=== PATIENT | female | born 1965 ===

== ENCOUNTER 2024-09-17 12:59 | Emergency (ER) | payer OTHER, SELFPAY ==
--- NOTE | ~2024-09-17 | XR_ITS ---
EXAMINATION: XR FEMUR, RIGHT CLINICAL INFORMATION: pain COMPARISON: None available. TECHNIQUE: AP and lateral views of the right femur were obtained. FINDINGS: Minimal osteopenia. No fracture, dislocation, or suspicious bone lesion. Suprapatellar joint effusion in the knee. Hip joint appears normal. Normal soft tissues. XR/XR femur RT 2V IMPRESSION: Intact right femur. Electronically signed by: Jesus Gleason MD 09/17/2024 03:14 PM LILIYA
--- NOTE | ~2024-09-17 | XR_ITS ---
EXAMINATION: XR PELVIS CLINICAL INFORMATION: pain COMPARISON: None available. TECHNIQUE: AP view of the pelvis. FINDINGS: No fracture. Hip joint spaces are maintained. Alignment is anatomic. Femoral heads are normal in contour without AVN. Minimal superolateral acetabular spurring. Mild to moderate right and minimal left SI joint arthritis. No abnormal soft tissue calcifications. XR/XR pelvis 1-2V IMPRESSION: No acute findings of the pelvis. Electronically signed by: Jesus Gleason MD 09/17/2024 03:09 PM LILIYA
--- NOTE | ~2024-09-17 | XR_ITS ---
EXAMINATION: XR ANKLE 3 OR MORE VIEWS RIGHT, XR FOOT 3 OR MORE VIEWS RIGHT HISTORY: PAIN COMPARISON: There are no prior studies available for comparison. FINDINGS: Six views of the right foot and ankle are submitted. Osseous mineralization is normal. There is a nondisplaced fracture of the base of the 2nd metatarsal. There may be an additional fracture of the base of the 3rd metatarsal. Evaluation is limited by difficulty in patient positioning. The joint spaces are preserved. There is a plantar calcaneal spur. The soft tissues are unremarkable. XR/XR foot RT min 3V IMPRESSION: Nondisplaced fracture of the base of the 2nd metatarsal. Possible additional fracture of the base of the 3rd metatarsal. If additional imaging is desired, CT could be performed. Electronically signed by: Brenton Santos MD 09/17/2024 03:13 PM LIL[facility] MARTIN
--- NOTE | ~2024-09-17 | XR_ITS ---
EXAMINATION: XR KNEE, RIGHT CLINICAL INFORMATION: PAIN COMPARISON: None available. TECHNIQUE: Four views of the right knee. FINDINGS: Mild osteopenia. No fracture or malalignment. No bone lesion. Tricompartmental mild osteoarthritis, most significant medial and patellofemoral joints. Moderate sized suprapatellar joint effusion. Normal soft tissues. XR/XR knee RT 4V IMPRESSION: No acute bony findings right knee. Suprapatellar joint effusion. Mild tricompartmental arthritis. Electronically signed by: Jesus Gleason MD 09/17/2024 03:12 PM LILIYA
--- NOTE | ~2024-09-17 | XR_ITS ---
EXAMINATION: XR ANKLE 3 OR MORE VIEWS RIGHT, XR FOOT 3 OR MORE VIEWS RIGHT HISTORY: PAIN COMPARISON: There are no prior studies available for comparison. FINDINGS: Six views of the right foot and ankle are submitted. Osseous mineralization is normal. There is a nondisplaced fracture of the base of the 2nd metatarsal. There may be an additional fracture of the base of the 3rd metatarsal. Evaluation is limited by difficulty in patient positioning. The joint spaces are preserved. There is a plantar calcaneal spur. The soft tissues are unremarkable. XR/XR ankle RT min 3V IMPRESSION: Nondisplaced fracture of the base of the 2nd metatarsal. Possible additional fracture of the base of the 3rd metatarsal. If additional imaging is desired, CT could be performed. Electronically signed by: Brenton Santos MD 09/17/2024 03:13 PM LIL[facility] MARTIN
--- NOTE | ~2024-09-17 | XR_ITS ---
EXAMINATION: XR TIBIA AND FIBULA, RIGHT CLINICAL INFORMATION: PAIN COMPARISON: None available. TECHNIQUE: AP and lateral views of the right tibia and fibula were obtained. FINDINGS: The bones and soft tissues are normal. No fracture. No osseous lesions. XR/XR tibia fibula RT 2V IMPRESSION: Normal right tibia and fibula. Electronically signed by: Jesus Gleason MD 09/17/2024 03:13 PM [facility]
[2024-09-17 14:02] VITALS: BP 122/70; BP 136/69; PULSE 89; PULSE 97; RESP 16; TEMP 36.3; O2SAT 97; BMI 29.5
--- NOTE | 2024-09-17 14:09 | ED.GENADULT ---
HPI - General Adult General Chief complaint: Fall Stated complaint: FALL DOWN 2 STEPS,R KNEE PAIN/SWELLING PER EMS Time Seen by Provider: 09/17/24 14:02 Source: patient Mode of arrival: EMS Limitations: no limitations History of Present Illness HPI narrative: This is a 59-year-old woman who is brought in by EMS for evaluation of right leg injury. Patient states that she fell walking down 2 steps this morning. She states that she missed the last step and twisted her foot/ankle. She states that she took 1 ibuprofen early this morning at 9:00 a.m.. She states ongoing pain. She states no associated head strike or loss of consciousness. She states no neck pain. She states no extremity paresthesias. She states no associated chest pain, dyspnea, back pain, abdominal pain, headache, nausea or vomiting. She states no bilateral upper extremity injury/pain. She states the majority of her pain is in her right knee, leg and ankle/foot. She states previous injury to the right lower extremity or previous orthopedic surgery. She states taking no anticoagulated medications. Related Data Allergies Allergy/AdvReac Type Severity Reaction Status Date / Time orange Allergy Unknown Verified 09/17/24 14:05 Review of Systems Review of Systems: ROS as per [facility] Social History Social History Advance Directives: No Advance Directives Information Provided: Yes Physical Exam ED Vital Signs: Vital Signs - 24 hr 09/17/24 14:02 Temperature 97.3 F Pulse Rate 89 Respiratory Rate 16 Blood Pressure 136/69 Pulse Oximetry 97 Oxygen Delivery Method Room Air BMI result Body Mass Index 29.5 Gen: NAD, AOx3 HEENT: NCAT, EOMI, normal conjunctiva, no periorbital/postauricular ecchymosis, no bilateral hemotympanum, no otorrhea/rhinorrhea CV: RRR, no murmurs appreciated, 2+ bilateral radial and DP/PT pulses Pulm: CTAB, no increased work of breathing GI: Soft, NTND, no rebound, guarding or rigidity MSK: No midline vertebral tenderness to palpation, full active range of motion with neck flexion/extension lateral 45? rotation, no extremity deformity, bilateral upper and lower extremities parents are soft with intact overlying skin, contusion to right knee a contusion/ecchymosis of the right lateral foot, tenderness to palpation to the right forefoot, intact good range of motion with the right hip/knee/ankle flexion/extension, no laxity of the right knee with anterior/posterior and valgus/varus stress Neuro: Grossly non focal, GCS 15 , sensation intact to light touch in bilateral lower extremity dermatomes L2-S2 Skin: Warm/dry, no abrasions/lacerations, no ecchymosis to the sole of the right foot Medications Administered Discontinued Medications Generic Name Dose Route Start Last Admin Trade Name Ember PRN Reason Stop Dose Admin Ibuprofen 600 mg 09/17/24 14:07 09/17/24 14:36 Ibuprofen 600 Mg Tablet PO 09/17/24 14:08 600 mg ONCE ONE Administration Oxycodone HCl 5 mg 09/17/24 14:07 09/17/24 14:36 Oxycodone Hcl Immed Release 5 Mg Tablet PO 09/17/24 14:08 5 mg ONCE ONE Administration Medical Decision Making Medical Decision Making [facility] Narrative: Differential diagnosis includes, but is not limited to sprain, strain, fracture, dislocation. Patient is afebrile and hemodynamically stable on room air. Exam is benign and reassuring. The affected right lower extremity is neurovascularly intact. Patient was treated supportively with ibuprofen and oxycodone for analgesia. Considered CT imaging of the head, but patient is not less than 16 years of age, on blood thinners, had seizure activity after the injury, she says she was mellitus and 15 and 2 hours post injury, there are no exam findings to suspect open or depressed skull fracture, patient has had no episodes of vomiting, patient has not greater than or equal to 65 years of age, she has no retrograde amnesia to the event greater than or equal to 30 minutes and the patient did not experience a dangerous mechanism of injury. For these reasons, CT imaging of the head is not obtained. Considered CT imaging of the cervical spine, but patient is not greater than equal to 65 years of age, experiencing extremity paresthesias or had a dangerous mechanism of injury. The patient also has low risk factors in the ED with sitting position, no neck pain, no midline vertebral tenderness to palpation and she is able to actively rotate her neck 45? to the left and right. For these reasons, CT imaging of the cervical spine is not obtained. Patient is provided a walking boot and crutches. I considered knee immobilizer for the right knee, but there is no laxity to the knee joint suggest underlying ligamentous injury. On re-examination, patient is well-appearing and in no acute distress. ?There is no indication for further emergent evaluation in this otherwise well-appearing patient as above. ?Patient is provided written and verbal instructions, educational materials, orthopedic surgery referral, recommendations for outpatient follow-up, strict return precautions and teach back is performed. ?Patient states understanding and agreement with plan of care. ?Patient is discharged home in stable and improved condition. Admission/Observation Consideration of admission/observation: Escalation of care including admission/observation considered Independent Interpretation I performed an independent interpretation of an: Plain X-Ray Interpretation: I independently reviewed and interpreted the patient's x-ray of the right pelvis, femur, knee, tibia/fibula, ankle and foot, which demonstrates acute fracture of the 2nd metatarsal and otherwise demonstrates no acute fracture or dislocation. Radiology Impression Discussion of test interpretation with radiology: I have reviewed the radiologist's reading. Radiologist Impression: XR/XR pelvis 1-2V IMPRESSION: No acute findings of the pelvis. Electronically signed by: Jesus Gleason MD 09/17/2024 03:09 PM EST RP Dictated By: Jesus Gleason MD Signed By: <Electronically signed by Jesus Gleason MD in OV> 09/17/24 1509 XR/XR femur RT 2V IMPRESSION: Intact right femur. Electronically signed by: Jesus Gleason MD 09/17/2024 03:14 PM EST RP Dictated By: Jesus Gleason MD Signed By: <Electronically signed by Jesus Gleason MD in OV> 09/17/24 1514 XR/XR knee RT 4V IMPRESSION: No acute bony findings right knee. Suprapatellar joint effusion. Mild tricompartmental arthritis. Electronically signed by: Jesus Gleason MD 09/17/2024 03:12 PM EST RP Dictated By: Jesus Gleason MD Signed By: <Electronically signed by Jesus Gleason MD in OV> 09/17/24 1512 XR/XR tibia fibula RT 2V IMPRESSION: Normal right tibia and fibula. Electronically signed by: Jesus Gleason MD 09/17/2024 03:13 PM EST RP Dictated By: Jesus Gleason MD Signed By: <Electronically signed by Jesus Gleason MD in OV> 09/17/24 1513 XR/XR ankle RT min 3V IMPRESSION: Nondisplaced fracture of the base of the 2nd metatarsal. Possible additional fracture of the base of the 3rd metatarsal. If additional imaging is desired, CT could be performed. Electronically signed by: Brenton Santos MD 09/17/2024 03:13 PM EST RP Dictated By: Brenton Santos MD Signed By: <Electronically signed by Brenton Santos MD in OV> 09/17/24 1513 XR/XR foot RT min 3V IMPRESSION: Nondisplaced fracture of the base of the 2nd metatarsal. Possible additional fracture of the base of the 3rd metatarsal. If additional imaging is desired, CT could be performed. Electronically signed by: Brenton Santos MD 09/17/2024 03:13 PM EST RP Dictated By: Brenton Santos MD Signed By: <Electronically signed by Brenton Santos MD in OV> 09/17/24 1513 Discharge Plan Discharge Clinical Impression: Metatarsal fracture Patient Disposition: Home, Self-Care Instructions: Foot Fracture in Adults (ED) Additional Instructions: You were seen and evaluated in the emergency room after a fall with a right leg injury. You were found to have a fracture of the 2nd bone in your foot and a questionable fracture of the 3rd bone in your foot. You were given a walking boot and crutches to use. You may bear weight as tolerated on your injury to foot. Please call the orthopedic office to schedule a follow up appointment in 1 week. Please take 600 mg ibuprofen every 6 hours with food and water as needed for pain/swelling. You can also take 1000 mg Tylenol every 8 hour as needed for additional pain relief. Please elevate your leg above the level of your heart as much as possible throughout the day. Please ice your foot 20 minutes at a time with 20 minutes break in between. Please repeat this 3 times a day. Please feel free to repeat this cycle several times a day. Please also follow up with your primary care doctor in the next 1-2 weeks as needed. Return to the emergency room with any new concerns, symptoms or injuries. Referrals: Elvis Rivera MD [Physician] - 1 week Print Language: Kiswahili
[2024-09-17] MEDS: oxyCODONE HCl Immed Release 5 MG TABLET PO (14:36)
[2024-09-17] MEDS: Ibuprofen 600 MG TABLET PO (14:36)
--- OUTSIDE RECORDS SUMMARY | 2024-09-17 15:37 | XMS_ITS | Encounter Summary ---
Author Organization [facility] Address [address] [place] [address] Care Team Providers Care Manager Hiv Name Role Phone Minnie Turner MD Primary Care Provider [phone] Reason for Visit * Reason Comments UTI Asthma Encounter Details Date Type Department Care Team (Late st Contact Info) Description 09/13/2024 2:15 PM EST Office Visit Adult Medicine [facility] [address] [place] [address] Minnie Turner MD [address] [place] [address] Urine frequency (Primary Dx); Acute UTI; Moderate persistent asthma without complication Social History Tobacco Use Types Packs/Day Years Used Date Smoking Tobacco: Every Day Cigarettes 1 39.1 Started: 08/08/1985 Smokeless Tobacco: Never Tobacco Cessation:Ready to Q uit: Not Asked; Counseling Given: Not Answered Alcohol Use Standard Drinks/Week Comments No 0 (1 standard drink = 0.6 oz pur e alcohol) Comments Unknown Sex and Gender Information Value Date Recorded Sex Assigned at Not on file Legal Sex Female 5:07 AM EST Gender Identity Not on file Sexual Orientation Not on file documented as of this encounter Last Filed Vital Signs Vital Sign Reading Time Taken Comments Blood Pressure 116/72 09/13/2024 2:07 PM EST Pulse 98 09/13/2024 2:07 PM EST Temperature 36.3 ??C (97.4 ??F) 09/13/2024 2:07 PM ES T Respiratory Rate 16 09/13/2024 2:07 PM EST Oxygen Saturation 98% 09/13/2024 2:07 PM EST Inhaled Oxygen Concentration - - Weight 80.2 kg (176 lb 12.8 oz) 09/13/2024 2:07 PM EST Height 167.6 cm (5' 6 ) 09/13/2024 2:07 PM EST Body Mass Index 28.54 09/13/2024 2:07 PM EST documented in this encounter Ordered Prescriptions Prescription Sig Dispense Quantity Refills Last Filled Start Date End Date nitrofurantoin, macrocrystal-monoh ydrate, (MACROBID) 100 mg capsule Take 1 capsule (100 mg total) by mouth 2 (two) times a day for 5 days. 10 each 09/13/2024 loratadine (CLARITIN) 10 mg tablet Take 1 tablet (10 mg total) by mouth 1 (one) time each day. 90 each 1 09/13/2024 fluticasone (Flonase Sensimist) 27.5 mcg/actuation nasal spray Administer 1 spray into each nostril 1 (one) time each day. 10 g 3 09/13/2024 5 documented in this encounter Progress Notes * Shelley Valentine MA - 09/13/2024 2:15 PM ESTAddended by: SHELLEY VALENTINE on: 09/13/2024 02:55 PM Modules accepted: Orders * Shelley Valentine MA - 09/13/2024 2:15 PM ESTAddended by: SHELLEY VALENTINE on: 09/13/2024 03:17 PM Modules accepted: Orders * JOSE Clancy - 09/13/2024 2:15 PM ESTAddended by: QUIANA GILES on: 09/13/2024 03:28 PM Modules accepted: Orders * Minnie Turner MD - 09/13/2024 2:15 PM EST Chief Complaint: Chief Complaint Patient presents with UTI Asthma IDENTIFIER: Ankita Anderson is a 59 y.o. old female HPI She comes for evaluation stating that for some weeks she has noted her urine was dark in the morning, she is having some mild dysuria, no blood that she is seeing, she has been drinking some extra fluids and having some polyuria. She is voiding in normal amounts. She did have a telehealth visit yesterday and was complaining of some chest discomfort, stress test was reordered and she is awaiting scheduling for that. She does see behavioral health for anxiety and depression and continues on olanzapine, venlafaxine as well as Klonopin. She does have asthma and continues on the albuterol inhaler as well as Breo elliptica, Flonase and Pepcid. She has an appointment upcoming with GI. 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 Surgical History: Past Surgical History: Procedure Laterality Date NEPHRECTOMY PROCEDURE: HISTORICAL NEPHRECTOMY; COMMENT: right; donation Family History: Family History Problem Relation Name Age of Onset Diabetes Mother endstage kidney disease with kidney transplant, hypertension Throat cancer Maternal Grandfather Diabetes Father PA Breast cancer Neg Hx Colon cancer Neg Hx Ovarian cancer Neg Hx Social History: Social History Tobacco Use Smoking status: Every Day Current packs/day: 1.00 Average packs/day: 1 pack/day for 39.1 years (39.1 ttl pk-yrs) Types: Cigarettes Start date: 08/08/1985 Smokeless tobacco: Never Substance Use Topics Alcohol use: No Allergies: Fruit extracts Medications: Outpatient Medications Marked as Taking for the 09/13/24 encounter (Office Visit) with Minnie Turner MD Medication Sig Dispense Refill albuterol 2.5 mg /3 mL (0.083 %) nebulizer solution Take 1 Vial by nebulization every 4 hours as needed for Wheezing. calcium carbonate (TUMS ORAL) Take 3 Tablets by mouth 4 times daily. clonazePAM (KlonoPIN) 1 mg tablet Take 1 Tab by mouth 2 times daily as needed. famotidine (PEPCID) 20 mg tablet TAKE 1 TABLET BY MOUTH TWICE A DAY fluticasone (Flonase Sensimist) 27.5 mcg/actuation nasal spray Administer 1 spray into each nostril1 (one) time each day. 10 g 3 fluticasone furoate-vilanteroL (BREO ELLIPTA) 100-25 mcg/dose inhaler Inhale 1 Puff into the lungs daily. loratadine (CLARITIN) 10 mg tablet Take 1 tablet (10 mg total) by mouth 1 (one) time each day. 90 each 1 OLANZapine (ZyPREXA) 20 mg tablet TAKE 1 TABLET BY MOUTH EVERYDAY AT BEDTIME venlafaxine XR (EFFEXOR-XR) 75 mg 24 hr capsule Take 1 Capsule by mouth daily. Ventolin HFA 90 mcg/actuation inhaler INHALE 2 PUFFS INTO THE LUNGS EVERY 4 HOURS NEEDED FOR WHEEZING OR SHORTNESS OF BREATH 18 g 0 [DISCONTINUED] fluticasone (Flonase Sensimist) 27.5 mcg/actuation nasal spray 2 Sprays by Nasal route daily. [DISCONTINUED] loratadine (CLARITIN) 10 mg tablet Take 1 Tablet by mouth daily. Medication Discontinued/Reordered: Medications Discontinued During This Encounter Medication Reason fluticasone (Flonase Sensimist) 27.5 mcg/actuation nasal spray Reorder loratadine (CLARITIN) 10 mg tablet Reorder Vitals: Blood pressure 116/72, pulse 98, temperature 36.3 ??C (97.4 ??F), temperature source Temporal, resp. rate 16, height 1.676 m (66 ), weight 80.2 kg (176 lb 12.8 oz), SpO2 98%. Body mass index is 28.54kg/m??.Plan is deferred until next visit Physical Exam: General: patient is in no acute distress. Neck supple without adenopathy, no thyromegaly. Lungs clear with auscultation. Heart: regular S1S2 without murmur, rub or gallop. No CVA tenderness.Abdomen soft, nontender, no masses or organomegaly. Bowel sounds normal active. Extremities without cyanosis,clubbing or edema. Labs: Urinalysis shows leukocytes and blood, urine culture sent Impression: 1. Urine frequency 2. Acute UTI 3. Moderate persistent asthma without complication Assessment and Plan: She likely has a urinary tract infection, she will continue to push fluids, prescription for Macrobid is sent and urine culture is ordered. She is awaiting the previously ordered stress test. Asthma remains controlled with her inhalers, refills are given for that. Myself and my colleagues have maintained a long-term, longitudinal relationship with this patient, overseeing care of chronic conditions including asthma. This care relationship has significantly influenced my decision making and treatment plans during today's encounter. documented in this encounter Plan of Treatment Upcoming Encounters Date Type Department Care Team (Late st Contact Info) Description 10/23/2024 1:00 PM EDT Office Visit Gastroenterology - [place] [address] [facility] 175 [facility] [address] [place] [phone] Berta Fernandez PA [address] [facility] [address] [address] 03/13/2025 10:15 AM EDT Office Visit Adult Medicine [address] [phone] Yancy Goncalves PA [address] [place] [phone] 05/22/2025 9:00 AM EDT Office Visit Adult Medicine [address] [phone] Minnie Turner MD [address] [place] [phone] Scheduled Orders Name Type Priority Associated Diagnoses Orde r Schedule Culture urine Microbiology Routine Acute UTI Ordered: 09/13/2024 Culture urine Microbiology Routine Urine frequency Ordered: 09/13/2024 Culture urine Microbiology Routine Urine frequency Acute UTI Ordered: 09/13/2024 documented as of this encounter Procedures Procedure Name Priority Date/Time Associated Diagnosis Comments CULTURE URINE Routine 09/13/2024 3:29 PM EST Urine frequency POC URINE NON-AUTO W/O MICRO Routine 09/13/2024 2:37 PM EST Urine frequency documented in this encounter Results * Culture urine (09/13/2024 3:29 PM EST) Culture, Urine <10,000 CFU/mL gram negative bacilli, insignificant count, no further workup 09/14/2024 1:17 PM EST [facility] Urine Urine specimen obtained by clean catch procedure / Unknown Non-blood Collection / Unknown 09/13/2024 3:29 PM EST 09/13/2024 3:30 PM EST [facility] MICROBIOLOGY - GENERAL OR DERABLES Final Result [facility] [address] [place] [address], [place] [phone] * (ABNORMAL) POC Urine Non-Auto W/O Micro (09/13/2024 2:37 PM EST) GLUCOSE POC Negative Negative, Trace mg/dL Leukocytes UA POC 2+(A) Negative Nitrite UA POC Negative Urobilinogen UA POC 1.0 E.U./dL mg/dL Protein UA POC Negative Negative PH UA POC 5 Blood UA POC 2+(A) Negative SPECIFIC GRAVITY POC 1.010 Ketones UA POC Negative Negative Bilirubin UA POC Negative Negative Urine Urine specimen obtained by clean catch procedure / Unknown 09/13/2024 2:37 PM EST Minnie Turner MD POINT OF CARE TEST ENTER/EDIT OR DERABLES Final Result documented in this encounter Visit Diagnoses Diagnosis Urine frequency- Primary Acute UTI Urinary tract infection, site not specified Moderate persistent asthma without complication documented in this encounter Discontinued Medications Medication Sig Discontinue Reason Start Date End Da te fluticasone (Flonase Sensimist) 27.5 mcg/actuation nasal spray 2 Sprays by Nasal route daily. Reorder 12/07/2023 09/13/2024 loratadine (CLARITIN) 10 mg tablet Take 1 Tablet by mouth daily. Reorder 02/16/2023 09/13/2024 documented as of this encounter Care Teams Manager Hiv Relationship Specialty Start Date End Date Minnie Turner MD [address] [place] [address] PCP - General Internal Medicine 04/02/04 documented as of this encounter
--- OUTSIDE RECORDS SUMMARY | 2024-09-17 15:37 | XMS_ITS | Encounter Summary ---
Author Organization [facility] Address [address] [place] [address] Care Team Providers Care Amusement Ride Inspector Name Role Phone Minnie Turner MD Primary Care Provider [phone] Reason for Referral * Cardiac Stress Testing (Routine) - Authorized Specialty Diagnoses / Procedures Referred By Contac t Referred To Contact Cardiology Diagnoses Chest pain, unspecified type Procedures Exercise stress test Marcela Celis PA [address] [place] [address] Phone: tel: fax: [facility] Referral ID Status Reason Start Date Expiration Date V isits Requested Visits Authorized [id number] Authorized 09/12/2024 09/12/2025 1 1 Reason for Visit * Reason Comments Asthma Anxiety Follow-up Encounter Details Date Type Department Care Team (Late st Contact Info) Description 09/12/2024 11:00 AM EST Office Visit Adult Medicine [address] [phone] Marcela Celis PA [address] [place] [address] Chest pain, unspecified type (Primary Dx); Gastroesophageal reflux disease, unspecified whether esophagitis present; Tobacco use Social History Tobacco Use Types Packs/Day Years [...] Sign Reading Time Taken Comments Blood Pressure 114/70 09/12/2024 11:27 AM EST Pulse 89 09/12/2024 11:27 AM EST Temperature 36.5 ??C (97.7 ??F) 09/12/2024 11:[address] Respiratory Rate 14 09/12/2024 11:27 AM EST Oxygen Saturation 97% 09/12/2024 11:27 AM EST Inhaled Oxygen Concentration - - Weight 79.4 kg (175 lb) 09/12/2024 11:27 AM EST Height - - Body Mass Index 28.25 01/18/2024 1:25 PM EDT documented in this encounter Patient Instructions * Attachments The following attachments cannot be sent through Care Everywhere. * Chest Pain (Iranian) * Acid-Reducing Medicines: General Info (Iranian) * GERD (Iranian) documented in this encounter Progress Notes * Nicky Sotelo MA - 09/12/2024 11:00 AM ESTAddended by: NICKY SOTELO on: 09/12/2024 02:10 PM Modules accepted: Orders * JOSE Clancy - 09/12/2024 11:00 AM EST CHIEF COMPLAINT: Asthma, Anxiety, and Follow-up IDENTIFIER: nAkita Anderson is a 59 y.o. old female. I have obtained verbal consent from Ankita Anderson prior to the recording. I have advised Ankita Anderson that she may refuse the recording and require the recording to be turned off at any time during this encounter. History of Present Illness Patient spoke with triage nurse on 09/04/24 reporting upper abdominal pain rated 8-9/10 in intensity associated with chest heaviness and nausea and was advised to present to the emergency room. Today, patient states she decided not to go to emergency room I don't like the emergency room. She reports continued burning discomfort over the epigastrium sometimes involving the entire chest; reports noticing symptoms seem to be worse when in bed at night. She continues smoking half pack per day despite GERD/hiatal hernia for which she reports taking famotidine 40 mg nightly; last evaluated by gastroenterology on 01/18/24 without follow-up scheduled. She has not yet undergone the stress test that was ordered in December 2023. Denies chest pain at time of exam. At the end of the visit, patient reports experiencing numbness in both hands, particularly during activities such as writing/typing. We discussed she may trial nightly wrist splinting, but would needto schedule dedicated appointment for this concern. 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 Past Surgical History: Procedure Laterality Date NEPHRECTOMY PROCEDURE: HISTORICAL NEPHRECTOMY; COMMENT: right; donation SOCIAL HISTORY: Social History Tobacco Use Smoking status: Every Day Current packs/day: 1.00 Average packs/day: 1 pack/day for 39.1 years (39.1 ttl pk-yrs) Types: Cigarettes Start date: 08/08/1985 Smokeless tobacco: Never Substance Use Topics Alcohol use: No FAMILY HISTORY: Family History Problem Relation Name Age of Onset Diabetes Mother endstage kidney disease with kidney transplant, hypertension Throat cancer Maternal Grandfather Diabetes Father [place] Breast cancer Neg Hx Colon cancer Neg Hx Ovarian cancer Neg Hx Family Status Relation Name Status Mother (Not Specified) MGF Father (Not Specified) Neg Hx (Not Specified) No partnership data on file MEDICATIONS DISCONTINUED/REORDERED: There are no discontinued medications. ACTIVE MEDICATIONS: Outpatient Medications Marked as Taking for the 09/12/24 encounter (Office Visit) with JOSE Clancy Medication Sig Dispense Refill albuterol 2.5 mg [...] spray 2 Sprays by Nasal route daily. fluticasone furoate-vilanteroL (BREO ELLIPTA) 100-25 mcg/dose inhaler Inhale 1 Puff into the lungs daily. loratadine (CLARITIN) 10 mg tablet Take 1 Tablet by mouth daily. mupirocin (BACTROBAN) 2 % ointment APPLY THIN FILM TO AFFECTED AREAS ON CORNERS OF MOUTH 2-3 TIMES DAILY FOR 7 DAYS. 22 g 0 OLANZapine (ZyPREXA) 20 mg tablet TAKE 1 TABLET BY MOUTH EVERYDAY AT BEDTIME venlafaxine XR (EFFEXOR-XR) 75 mg 24 hr capsule Take 1 Capsule by mouth daily. Ventolin HFA 90 mcg/actuation inhaler INHALE 2 PUFFS INTO THE LUNGS EVERY 4 HOURS NEEDED FOR WHEEZING OR SHORTNESS OF BREATH 18 g 0 ALLERGIES: Allergies Allergen Reactions Fruit Extracts Hives ORANGES PHYSICAL EXAM: Visit Vitals BP 114/70 Pulse 89 Temp 36.5 ??C (97.7 ??F) (Temporal) Resp 14 Wt 79.4 kg (175 lb) SpO2 97% BMI 28.25 kg/m?? Smoking Status Every Day BSA 1.89 m?? Wt Readings from Last 5 Encounters: 09/12/24 79.4 kg (175 lb) 01/18/24 74.4 kg (164 lb) 12/07/23 75.8 kg (167 lb) 07/13/23 78.5 kg (173 lb) 03/04/23 79.2 kg (174 lb 9.6 oz) BMI plan is deferred until next visit Physical Exam APPEARANCE: Alert, overweight, and in no acute distress HEART: RRR with normal S1 and S2, no murmurs, no gallops LUNG: Bilateral lung kidd clear to auscultation throughout EXTREMITIES: Moving bilateral upper/lower extremities independently; no obvious upper/lower extremity deformity; bilateral upper/lower extremities warm and well perfused without edema EKG: Normal sinus rhythm, rate 78 bpm. No evidence of ischemia or arrhythmia. Similar when comparedto tracing dated 12/08/23. LABS: Orders Placed This Encounter Procedures Exercise stress test IMAGING: Ordered cardiovascular stress testing IMPRESSION: 1. Chest pain, unspecified type 2. Gastroesophageal reflux disease, unspecified whether esophagitis present 3. Tobacco use Assessment & Plan Chest discomfort - Reportedly asymptomatic at time of exam, EKG without ischemia - We discussed complete workup for chest pain cannot be completed on outpatient basis and she is encouraged to return to the ER immediately for any return of chest pain/pressure - Stress test is reordered Hiatal hernia/GERD: - Strongly encouraged low acid diet and tobacco cessation - We discussed pathophysiology of hiatal hernia relative to symptoms - Continue famotidine as prescribed - Consult marketing operations manager for medication timing Possible carpal tunnel syndrome - Not fully evaluated today due to scheduling constraints, advised to schedule dedicated appointment for further evaluation - Use wrist splints at night to prevent wrist bending and alleviate symptoms Medication and lab orders: Orders Placed This Encounter Procedures Exercise stress test Other orders: STRESS TEST ONLY EXERCISE JOSE Clancy on 09/12/2024 at 1:48 PM EST G2211 is applicable to this visit as the primary care provider (PCP) office dealing with list the conditions noted/billed above are complex requiring extensive management/work up associated with longitudinal care of this patient. This patient???s serious/complex conditions may also require several consultants needing management/coordination through PCP office. This note was dictated using voice recognition software. Please pardon any grammatical or syntax errors. * Nicky Sotelo MA - 09/12/2024 11:00 AM EST Electrocardiogram performed and reviewed by Nicky Celis PA-C. documented in this encounter Plan of Treatment Upcoming Encounters Date Type Department Care Team (Late st Contact Info) Description 10/23/2024 1:00 PM EDT Office Visit Gastroenterology - [place] [address] [place] [address] Berta Fernandez PA [address] [facility] [address] [facility] [address] [place] [address] 03/13/2025 10:15 AM EDT Office Visit Adult Medicine [address] [phone] Yancy Goncalves PA [address] [place] [phone] 05/22/2025 9:00 AM EDT Office Visit Adult [address] [phone] Minnie Turner MD [address] [place] [address] Scheduled Orders Name Type Priority Associated Diagnoses Orde r Schedule Exercise stress test Cardiac Nuclear Medicine Routine Chest pain, unspecified type 1 Occurrences starting 09/12/2024 until 09/12/2025 documented as of this encounter Procedures Procedure Name Priority Date/Time Associated Diagnosis Comments ECG 12-LEAD Routine 09/12/2024 2:08 PM EST Chest pain, unspecified type documented in this encounter Results * ECG 12 lead (09/12/2024 2:08 PM EST) 09/12/2024 2:08 PM EST Marcela GARCIA ECG ORDERABLES Final Result documented in this encounter Visit Diagnoses Diagnosis Chest pain, unspecified type- Primary Gastroesophageal reflux disease, unspecified whether esophagitis present Tobacco use documented in this encounter Care Teams Amusement Ride Inspector Relationship Specialty Start Date End Date Minnie Turner MD [address] [place] [address] PCP - General Internal Medicine 04/02/04 documented as of this encounter
--- OUTSIDE RECORDS SUMMARY | 2024-09-17 15:37 | XMS_ITS | Encounter Summary ---
Author Organization [facility] Address [address] [place] [address] Care Team Providers Care Scale Tank Operator Name Role Phone Minnie Turner MD Primary Care Provider [phone] Reason for Visit * Reason Onset Date Comments Hernia 09/04/2024 Encounter Details Date Type Department Care Team (Late st Contact Info) Description 09/04/2024 Nurse Triage Adult Medicine [facility] [address] [place] [address] Minnie Turner MD [address], [place] Hernia Social History Tobacco Use Types Packs/Day Years Used Date Smoking Tobacco: Every Day Cigarettes 1 39.1 Started: 08/08/1985 Smokeless Tobacco: Never Alcohol Use Standard Drinks/Week Comments No 0 (1 standard drink = 0.6 oz pur e alcohol) Comments Unknown Sex and Gender Information Value Date Recorded Sex Assigned at Not on file Legal Sex Female 5:07 AM EST Gender Identity Not on file Sexual Orientation Not on file documented as of this encounter Progress Notes * Ruchi Acevedo RN - 09/04/2024 11:19 AM EST Pt. States she has been having issues with abd. Pain on and off for years , she has had procedures and was told she has hiatal hernia and reflux disease. Pt. States over the last two days this pain has been constant . It is located upper abd. Radiating to left side. The pain is 8-9/10 she denies sob or weakness. She is tried and when asked sts she does have chest heaviness and intermittent nausea. She denies black tarry stools but notes her urine has been dark . (She has one kidney) I advised her if having chest pressure , upper abd. Pain radiating towards the left side and nausea should callfor ambulance . Pt. Does not feel she needs an ambulance . I reiterated the importance due some of her symptoms could be cardiac related, Pt. Is not willing to go to [facility] she [facility] go to [facility] and [facility] take her documented in this encounter Plan of Treatment Upcoming Encounters Date Type Department Care Team (Late st Contact Info) Description 10/23/2024 1:00 PM EDT Office Visit Gastroenterology - [place] [address] [facility] [address] [facility] [address] [place] [address] Berta Fernandez PA [address] [facility] [address] [place] [address] 03/13/2025 10:15 AM EDT Office Visit Adult Medicine [address] [phone] Yancy Goncalves PA [address] [place] [phone] 05/22/2025 9:00 AM EDT Office Visit Adult Medicine [address] [phone] Minnie Turner MD [address] [place] [address] documented as of this encounter Visit Diagnoses Not on filedocumented in this encounter Care Teams Scale Tank Operator Relationship Specialty Start Date End Date Minnie Turner MD [address] [place] [address] PCP - General Internal Medicine 04/02/04 documented as of this encounter
--- OUTSIDE RECORDS SUMMARY | 2024-09-17 15:37 | XMS_ITS | Clinical Summary ---
Author Organization [address] [facility] Address [address] [place] [address] Phone Care Team Providers Care Hr Consultant Name Role Phone Minnie Turner MD Primary Care Provider [phone] Allergies Active Allergy Reactions Criticality Noted Date Comments Fruit Extracts Hives 09/16/2011 ORANGES Medications calcium carbonate (TUMS ORAL) Take 3 Tablets by mouth 4 times daily. Active albuterol 2.5 mg /3 mL (0.083 %) nebulizer solution Take 1 Vial by nebulization every 4 hours as needed for Wheezing. 07/14/20 22 Active clonazePAM (KlonoPIN) 1 mg tablet Take 1 Tab by mouth 2 times daily as needed. 02/21/20 20 Active fluticasone furoate-vilan teroL (BREO ELLIPTA) 100-25 mcg/dose inhaler Inhale 1 Puff into the lungs daily. 12/07/19 24 Active OLANZapine (ZyPREXA) 20 mg tablet TAKE 1 TABLET BY MOUTH EVERYDAY AT BEDTIME 07/07/20 22 Active venlafaxine XR (EFFEXOR-XR) 75 mg 24 hr capsule Take 1 Capsule by mouth daily. 12/28/19 23 Active Ventolin HFA 90 mcg/actuation inhaler INHALE 2 PUFFS INTO THE LUNGS EVERY 4 HOURS NEEDED FOR WHEEZING OR SHORTNESS OF BREATH 18 g 09/04/19 25 Active mupirocin (BACTROBAN) 2 % ointment APPLY THIN FILM TO AFFECTED AREAS ON CORNERS OF MOUTH 2-3 TIMES DAILY FOR 7 DAYS. 22 g 08/03/20 24 Active fluticasone (Flonase Sensimist) 27.5 mcg/actuation nasal spray Administer 1 spray into each nostril 1 (one) time each day. 10 g 3 09/13/19 25 025 Active loratadine (CLARITIN) 10 mg tablet Take 1 tablet (10 mg total) by mouth 1 (one) time each day. 90 each 1 09/13/19 25 Active nitrofurantoi n, macrocrystal- monohydrate, (MACROBID) 100 mg capsule Take 1 capsule (100 mg total) by mouth 2 (two) times a day for 5 days. 10 each 09/13/19 25 025 Active famotidine (PEPCID) 20 mg tablet TAKE 1 TABLET BY MOUTH TWICE A DAY 180 tablet 3 09/14/19 25 Active albuterol HFA (ProAir HFA) 90 mcg/actuation inhaler Inhale 2 Puffs into the lungs every 6 hours as needed for Wheezing or Shortness of Breath for up to 90 days. This is a Rescue Medication; not exceed 12 inhalations/24 hrs. 11/05/19 21 025 Discontinued famotidine (PEPCID) 20 mg tablet TAKE 1 TABLET BY MOUTH TWICE A DAY 02/15/20 24 025 Discontinued fluticasone (Flonase Sensimist) 27.5 mcg/actuation nasal spray 2 Sprays by Nasal route daily. 12/07/19 24 025 Discontinued(R eorder) loratadine (CLARITIN) 10 mg tablet Take 1 Tablet by mouth daily. 02/17/20 23 025 Discontinued(R eorder) Active Problems Problem Noted Date Diagnosed Date Gastroesophageal reflux disease without esophagi tis 03/09/2022 Globus sensation 03/09/2022 Thyroid nodule 12/30/2021 Overview (05/17/2024): 12/2021: 0.8 x 0.4 x 0.7 cm nodule lower pole left lobe, did not meet criteria for biopsy, will continue to monitor. Asthma 09/27/2018 CTS (carpal tunnel syndrome) 09/07/2016 Overview (05/17/2024): 2016 EMG: bilateral, mild on right and borderline on left Hematuria 01/21/2014 Overview (05/17/2024): With negative urine culture x 2 (as of 01/22/14); if persistent hematuria without evidence of infection, need to consider urology referral. 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 Resolved Problems Problem Noted Date Diagnosed Date Resolved Date Epigastric abdominal pain 12/07/2023 S/P cholecystectomy 03/04/2023 09/13/19 25 Encounters Date Type Department Care Team Description 09/13/2024 2:15 PM EST Office Visit Adult [address] [phone] Minnie Turner MD Urine frequency (Primary Dx); Acute UTI; Moderate persistent asthma without complication 09/12/2024 11:00 AM EST Office Visit Adult [address] [phone] Marcela Celis PA Chest pain, unspecified type (Primary Dx); Gastroesophageal reflux disease, unspecified whether esophagitis present; Tobacco use 09/04/2024 Nurse Triage [address] [phone] Minnie Turner MD Hernia from Last 3 Months Immunizations Name Administration Dates Next Due Influenza trivalent, with pr eservative (Fluzone; Afluria) 6mo and older 06/22/2012 Pneumococcal polysaccharide 23 valent (Pneumovax 23) 2yo and older 12/14/2021 Td Tetanus diptheria (Tdvax) 7yo and older 12/14 Tdap Tetanus diptheria acell ular pertussis (Boostrix; Adacel) 7yo and older 02/15/2011 Surgical History Surgery Date Site/Laterality Comments NEPHRECTOMY right; donation CHOLECYSTECTOMY Medical History Medical History Date Comments Kidney donor DX:Kidney donor Anemia, unspecified DX:Anemia, u nspecified Unspecified asthma(493.90) 11/19/2005 DX:Un specified asthma(493.90) Tobacco use disorder 06/28/2010 DX:Tobacco use disorder Anxiety 11/10/2010 DX:Anxiety Hematuria 01/21/2014 DX:Hematuria CTS (carpal tunnel syndrome) 09/07/2016 DX: CTS (carpal tunnel syndrome); COMMENT: bilateral Family History Medical History Relation Name Comments Diabetes Father [place] Throat cancer Maternal Grandfather Diabetes Mother endstage kidney disease with kidney transplant, hypertension Breast cancer Neg Hx Colon cancer Neg Hx Ovarian cancer Neg Hx Relation Name Status Comments Father Maternal Grandfather Mother Social History Tobacco Use Types Packs/Day Years [...] on file Sexual Orientation Not on file Obstetrics History Last Filed Vital Signs Vital Sign Reading [...] Mass Index 28.54 09/13/2024 2:07 PM EST Plan of Treatment Upcoming Encounters Date Type Department Care Team (Late st Contact Info) Description 10/23/2024 1:00 PM EDT Office Visit Gastroenterology - [place] [address] [place] [phone] Berta Fernandez PA [address] [place] [address] 03/13/2025 10:15 AM EDT Office Visit Adult Medicine [facility] [address] [place] [address] Yancy Goncalves PA [address] [place] [address] 05/22/2025 9:00 AM EDT Office Visit Adult Medicine [facility] [address] [place] [phone] Minnie Turner MD [address] [place] [address] Health Maintenance Due Date Last Done Comments Hepatitis B Vaccines (1 of 3 - 19+ 3-dose series) 1985 Zoster Vaccines (1 of 2) 2016 Cervical Cancer Screening: P ap Smear 01/21/2017 01/21/2014, 01/21/2014 DTaP,Tdap,and Td Vaccines (3 - Td or Tdap) 06/16/2022 12/14/2021, 02/15/2011 Colorectal Cancer Screening: FIT-DNA (Cologuard) 07/17/2022 Lung Cancer Screening (Low Dose CT) 07/17/2022 Medicare Annual Wellness Visit 07/17/2022 Social Influencers of Health Screening 07/17/2022 Pneumococcal Vaccine: 50+ Years (2 of 2 - PCV) 12/14/2022 12/14/2021 Pneumococcal Vaccine: Pediatrics (0 to 5 Years) and At-Risk Patients (6 to 64 Years) (2 of 2 - PCV) 12/14/2022 12/14/2021 COVID-19 Vaccine ( - 2023-2 5 season) 2024 Influenza Vaccine (#1) 2024 06/22/2012 Depression Screening 12/06/2024 12/07/2023 Breast Cancer Screening 01/18/2025 01/18/2023 Cholesterol Screening (Lipid Panel) 12/06/2028 12/07/2023, 12/07/2023 HIV Screening Completed 12/03/2014 Hepatitis C Screening Completed 12/03/2014 HIB Vaccines Aged Out No longer eligi ble based on patient's age to complete this topic HPV Vaccines Aged Out No longer eligi ble based on patient's age to complete this topic Hepatitis A Vaccines Aged Out No long er eligible based on patient's age to complete this topic IPV Vaccines Aged Out No longer eligi ble based on patient's age to complete this topic MMR Vaccines Aged Out No longer eligi ble based on patient's age to complete this topic Meningococcal ACWY Vaccine Aged Out N o longer eligible based on patient's age to complete this topic Meningococcal B Vacine Aged Out No lo nger eligible based on patient's age to complete this topic RSV Immunization Patients Under 20 months Aged Out No longer eligible b ased on patient's age to complete this topic Varicella Vaccines Aged Out No longer eligible based on patient's age to complete this topic Procedures Procedure Name Priority Date/Time Associated Diagnosis Comments CULTURE URINE Routine 09/13/2024 3:29 PM EST Urine frequency POC URINE NON-AUTO W/O MICRO Routine 09/13/2024 2:37 PM EST Urine frequency ECG 12-LEAD Routine 09/12/2024 2:08 PM EST Chest pain, unspecified type HM DEPRESSION SCREENING Routine 12/07/2023 LIPID PANEL Routine 12/07/2023 SCREENING MAMMOGRAPHY BI 2-VIEW BREAST INC CAD Routine 01/18/2023 5:41 PM EDT Gastro-esophageal reflux disease without esophagitis Tobacco use Mild intermittent asthma, uncomplicated Other seasonal allergic rhinitis Encounter for screening for malignant neoplasm of colon Constipation, unspecified HEPATITIS C SCREENING Routine 12/03/2014 HM HIV SCREENING Routine 12/03/2014 HM HPV Routine 01/21/2014 from Last 3 Months or Most Recently Relevant to Health Maintenance Results * Culture urine (09/13/2024 3:29 PM EST) Culture, Urine <10,000 CFU/mL gram negative bacilli, insignificant count, no further workup 09/14/2024 1:17 PM EST [facility] Urine Urine specimen obtained by clean catch procedure / Unknown Non-blood Collection / Unknown 09/13/2024 3:29 PM EST 09/13/2024 3:30 PM EST Marcela GARCIA LAB MICROBIOLOGY - GENERAL OR DERABLES Final Result [facility] [address] [place] [address], [place] [phone] * (ABNORMAL) POC Urine Non-Auto W/O Micro [...] CARE TEST ENTER/EDIT OR DERABLES Final Result * ECG 12 lead (09/12/2024 2:08 PM EST) 09/12/2024 2:08 PM EST us Marcela GARCIA ECG ORDERABLES Final Result * Depression Screening (12/07/2023) Pathologist [facility] Depression Screening Abstracted Ruth Provider HEALTH MAINTENANCE Final Result * (ABNORMAL) Lipid panel (12/07/2023) LDL/HDL Ratio 3 0 - 4 Triglycerides 356(A) 0 - 150 mg/dL Cholesterol 95 0 - 200 mg/dL HDL 35(A) >=40 mg/dL LDL Cholesterol 10 0 - 100 mg/dL Blood Venous blood specimen / Unknown us Historical Provider LAB BLOOD ORDERABLES Irene moses Result * SCREENING MAMMOGRAPHY BI 2-VIEW BREAST INC CAD (01/18/2023 5:41 PM EDT) Anatomical Region Laterality Modality Radiographic Alessandra ging 01/18/2023 10:0 7 AM EDT Narrative 01/19/2023 1:15 PM EDT This is a summary report. The complete report is available in the patient's medical record. If you cannot access the medical record, please contact the sending organization for a detailed fax or copy. Exam: Screening mammogram Findings: Digital bilateral full-field screening mammography is performed with tomosynthesis and interpreted with the aid of computer-aided detection. ??Comparison is made with 12/15/2012 and as far back as 07/15/2007. Breast parenchyma is heterogeneously dense, limiting mammographic sensitivity. ??No new suspicious mass, architectural distortion, or suspicious calcifications. Impression: No mammographic evidence of malignancy. BI-RADS 1 - negative Procedure Note Rima Ayala MD - 09/13/2023 This is a summary report. The complete report is available in thepatient's medical record. If you cannot access the medical record, pleasecontact the sending organization for a detailed fax or copy. Exam: Screening mammogram Findings: Digital bilateral full-field screening mammography is performedwith tomosynthesis and interpreted with the aid of computer-aideddetection. Comparison is made with 12/15/2012 and as far back as109/15/2006. Breast parenchyma is heterogeneously dense, limiting mammographicsensitivity. No new suspicious mass, architectural distortion, orsuspicious calcifications. Impression: No mammographic evidence of malignancy. BI-RADS 1 - negative Sara GARCIA IMG XR PROCEDURES Final Resul t * HIV Screening (12/03/2014) Pathologist [facility] HIV Screening Abstracted Historical Provider HEALTH MAINTENANCE Final Result * Hepatitis C Screening (12/03/2014) Pathologist [facility] Hepatitis C Screening Abstracted Historical Provider HEALTH MAINTENANCE Final Result * Cervical Cancer Screening: HPV (01/21/2014) Pathologist [facility] Cervical Cancer Screening: HPV abstracted ,negative Historical Provider HEALTH MAINTENANCE Final Result from Last 3 Months or Most Recently Relevant to Health Maintenance Insurance [employer] Member Subscriber Plan / Payer (Ef fective 2024-Present) Name:Ankita Anderson Relation to Subscriber:Self Name:Ankita Anderson Payer ID:[id number] Group ID:[id number] Type:Not on file Address: [place] [address] [place] [id number] Care Teams Hr Consultant Relationship Specialty Start Date End Date Minnie Turner MD [address] [place] [address] PCP - General Internal Medicine 04/02/04
[2024-09-17 16:19] VITALS: BP 138/64; PULSE 89; RESP 16; TEMP 36.3; O2SAT 96
== END 2024-09-17 16:19 | disposition home or self-care (01) ==
PROVIDERS: Emergency Provider Emergency Medicine; PCP Internal Medicine
DX: S92.324A Nondisplaced fracture of second metatarsal bone, right foot, initial encounter for closed fracture (principal); W10.9XXA Fall (on) (from) unspecified stairs and steps, initial encounter; Y93.9 Activity, unspecified; Y92.9 Unspecified place or not applicable; Y99.9 Unspecified external cause status
CPT/HCPCS: 72170; 73552; 73564; 73590; 73610; 73630; 99283

== ENCOUNTER → 2024-09-17 14:07 | Outpatient (BNV) | payer OTHER, SELFPAY | PROVIDERS: Emergency Provider Emergency Medicine; PCP Internal Medicine; Visit Provider Radiology Diagnostic Radiology | DX: M79.604 Pain in right leg (principal); M17.11 Unilateral primary osteoarthritis, right knee; M25.571 Pain in right ankle and joints of right foot; R10.2 Pelvic and perineal pain; M79.671 Pain in right foot | CPT/HCPCS: 72170; 73552; 73564; 73590; 73610; 73630 ==

== ENCOUNTER 2024-10-04 10:31 | Outpatient (AMB) | payer OTHER, SELFPAY ==
--- NOTE | 2024-10-04 10:40 | MHC.OFFVIS ---
Vital Signs 10/04/24 10:53 Height 5 ft 6 in Weight 182 lb BMI 29.4 Intake Visit Reasons: FC-RT Nondisplaced fx of base of 2nd metatarsal Intake Note: Ankita is a 59 year old female who presents today for an ER follow up of RT foot, 2nd metatarsal fracture, DOI 09/17/24. Patient was brought to [facility] ER by ambulance s/p a fall down stairs. X-rays were taken and was placed in a walking boot and crutches were given, weight bear as tolerated. Patient reports intermittent pain and swelling. No numbness or tingling. Finds relief with icing, Tylenol and Motrin. Allergies orange Allergy (Verified 10/04/24 10:49) Unknown Medication List - Last Reconciled 10/04/24 by Krish Gaviria PA-C albuterol sulfate 90 mcg/actuation inhalation clonazepam mg PO famotidine mg PO fluticasone furoate-vilanterol 100-25 mcg/dose inhalation loratadine 10 mg PO DAILY olanzapine 20 mg PO BEDTIME sucralfate mL PO venlafaxine ER mg PO DAILY HPI HPI FC-RT Nondisplaced fx of base of 2nd metatarsal: Details: 59 yo female presents tot he office today for an injury she sustained to her right foot on 09/17/24. She states she fell down the stairs and her foot bent behind her. She was seen in the ED, xrays obtained which were significant for a 2nd metatarsal fracture. she was placed in a boot and referred to our office for ortho eval. [facility] Social History (Updated 10/04/24 @ 10:51 by GIGI Lord) Patient Tobacco Use Status: Current everyday Tobacco user Current occupational status: unemployed Review of Systems Const All systems reviewed & are unremarkable except as noted in HPI and below Physical Exam Vital Signs: BMI result Body Mass Index 29.4 Const General: cooperative and no acute distress Orientation/consciousness: patient oriented x3 Resp Effort & Inspection: normal respiratory effort and able to speak in complete sentences Cardio Peripheral pulses: Peripheral pulses 2+ throughout Neuro General: patient oriented x3 Extrem Other: Right foot normal inspection. Mild swelling and ecchymosis with tenderness at the base of the 2nd metatarsal. She is able to plantar and dorsiflex. EHL intact. NVI. Office Procedures AMB Fracture Care Fracture Billing Code: Fracture Billing Code Results Reviewed Results Reviewed: Xrays were obtained in the office today and personally reviewed by me of the right foot show minimally displaced fx at the base of the 2nd metatarsal Assessment & Plan Assessment & Plan (1) Metatarsal fracture: Code(s): S92.309A - Fracture of unspecified metatarsal bone(s), unspecified foot, initial encounter for closed fracture Category: Medical Qualifiers: Encounter type: initial encounter Fracture alignment: displaced Fracture type: closed Laterality: right Metatarsal bone: second Qualified Code(s): S92.321A - Displaced fracture of second metatarsal bone, right foot, initial encounter for closed fracture Plan She was transitioned out the short boot she received from the emergency department as this was too big and causing her increased pain. She was fit for a short walking boot in our office today and also a postop shoe so she could switch between the to while at home ambulating and also out of the house. I explained over the next 4 weeks her symptoms should continue to improve where she can transition to a regular street shoe as symptoms allow. I explained the shoe should have a stiff sole and limit the mobility to decrease her pain. I encouraged icing and elevation. Anti-inflammatory use as needed. And she will increase activities as tolerated. If symptoms persist or worsen she will contact our office otherwise follow-up as needed. Orders: Orders XR foot RT min 3V Today S92.351A - Displaced fracture of fifth metatarsal bone, right foot, initial encounter for closed fracture Coding Level of Care Code New Pt Level 3 (77128) Complex EM visit Add On G2211 Diagnoses Closed displaced fracture of second metatarsal bone of right foot, initial encounter S92.321A Encounter type: initial encounter Fracture alignment: displaced Fracture type: closed Laterality: right Metatarsal bone: second CPT Codes Fracture Care - Fracture Billing Code: Fracture Billing Code ([id number])
[2024-10-04 10:53] VITALS: BMI 29.4
--- OUTSIDE RECORDS SUMMARY | 2024-10-04 12:19 | XMS_ITS | Encounter Summary ---
Author Organization [facility] Address [address] [place] [address] Care Team Providers Care Medical Donation Professional Name Role Phone Minnie Turner MD Primary Care Provider [phone] Reason for Visit * Reason Onset Date Comments Hernia 09/04/2024 Encounter Details Date Type Department Care Team (Late st Contact Info) Description 09/04/2024 Nurse Triage Adult Medicine [facility] [address] [place], [place] [phone] Minnie Turner MD [address] [place] [address] Hernia Social History Tobacco Use Types Packs/Day Years Used Date Smoking Tobacco: Every Day Cigarettes 1 39.2 Started: 08/08/1985 Smokeless Tobacco: Never Alcohol Use [...] Pt. Is not willing to go to [facility] she will go to [facility] and havesomeone take her documented in this encounter Plan of Treatment Upcoming Encounters Date Type Department Care Team (Late st Contact Info) Description 10/19/2024 7:30 AM EDT Ancillary Procedure [facility] [address] [place] [address] 10/23/2024 1:00 PM EDT Office Visit Gastroenterology - [place] [address] [place] [address] Berta Fernandez PA [address] [place] [address] 03/13/2025 10:15 AM EDT Office Visit Adult Medicine [address] [phone] Yancy Goncalves PA [address] [place] [address] 05/22/2025 9:00 AM EDT Office Visit Adult Medicine [address] [phone] Minnie Turner MD [address] [place] [phone] documented as of this encounter Visit Diagnoses Not on filedocumented in this encounter Care Teams Medical Donation Professional Relationship Specialty Start Date End Date Minnie Turner MD [address] [place] [phone] PCP - General Internal Medicine 04/02/04 documented as of this encounter
--- OUTSIDE RECORDS SUMMARY | 2024-10-04 12:19 | XMS_ITS | Encounter Summary ---
Author Organization [facility] Address [address] [place] [address] Care Team Providers Care Anatomy And Physiology Instructor Name Role Phone Minnie Turner MD Primary Care Provider [phone] Reason for Visit * Reason Onset Date Comments New Med Request 09/18/2024 Due to Hospital ER visit of broken leg Encounter Details Date Type Department Care Team (Late st Contact Info) Description 09/18/2024 Telephone Adult Medicine [facility] [address] [place], [place] [phone] Minnie Turner MD [address] [place] [address] New Med Request (Due to Hospital ER visit of broken leg) Social History Tobacco Use Types Packs/Day Years [...] as of this encounter Progress Notes * Symone Castro RN - 09/20/2024 11:55 AM EST Called and spoke with pt. Pt seen at er on 09/17 fx ankle referred to ortho appt 10/04 asking for refill on medication advised we would need to see her for a er fu before we can consider sending rx. Ptsts has no transportation advised medication is available otc also. Pt will get otc will call back for make er fu appt if finds transportation. * Eufemiaheidy Marcie - 09/18/2024 3:22 PM EST The patient id calling due to Hospital ER visit. She was seen in [facility] 09/17/2024 for a fall and later was informed that she has a fracture and a broken right ankle or leg. She would like to ask for a refill of the medication she received from the hospital Motrin 600 MG, take every 4-6 hours as needed. If possible to send it to [address] [address]. If you have any question call patient via phone number [phone]. documented in this encounter Plan of Treatment Upcoming Encounters Date Type Department Care Team (Late st Contact Info) Description 10/19/2024 7:30 AM EDT Ancillary Procedure [facility] - [address] [place] [address] 10/23/2024 1:00 PM EDT Office Visit Gastroenterology - [place] [address] [address] [facility] [address] [place] [address] Berta Fernandez PA [address] [facility] [address] [place] [address] 03/13/2025 10:15 AM EDT Office Visit Adult Medicine [address] [phone] Yancy Goncalves PA [address] [place] [address] 05/22/2025 9:00 AM EDT Office Visit Adult Medicine [address] [phone] Minnie Turner MD [address] [place] [address] documented as of this encounter Visit Diagnoses Not on filedocumented in this encounter Care Teams Anatomy And Physiology Instructor Relationship Specialty Start Date End Date Minnie Turner MD [address] [place] [address] PCP - General Internal Medicine 04/02/04 documented as of this encounter
--- OUTSIDE RECORDS SUMMARY | 2024-10-04 12:19 | XMS_ITS | Encounter Summary ---
Author Organization [facility] Address [address] [place] [address] Care Team Providers Care Sales Order Administrator Name Role Phone Minnie Turner MD Primary Care Provider [phone] Reason for Referral * Cardiac Stress Testing (Routine) - Authorized Specialty Diagnoses / Procedures Referred By Contac t Referred To Contact Cardiology Diagnoses Chest pain, unspecified type Procedures Exercise stress test Marcela Celis PA [address] [place] [address] Phone: tel: fax: [facility] Referral ID Status Reason Start Date Expiration Date V isits Requested Visits Authorized [id number] Authorized 09/12/2024 09/12/2025 1 1 Reason for Visit * Reason Comments Asthma Anxiety Follow-up Encounter Details Date Type Department Care Team (Late st Contact Info) Description 09/12/2024 11:00 AM EST Office Visit Adult Medicine [address] [phone] Marcela Celis PA [address] [place], [place] Chest pain, unspecified type (Primary Dx); Gastroesophageal reflux disease, unspecified whether esophagitis present; Tobacco use Social History Tobacco Use Types Packs/Day Years Used Date Smoking Tobacco: Every Day Cigarettes 1 39.2 Started: 08/08/1985 Smokeless Tobacco: Never Tobacco Cessation:Ready [...] sent through Care Everywhere. * Chest Pain (Venezuelan) * Acid-Reducing Medicines: General Info (Venezuelan) * GERD (Venezuelan) documented in this encounter Progress Notes * Nicky Sotelo [place] - 09/12/2024 11:00 AM ESTAddended by: NICKY SOTELO on: 09/12/2024 02:10 PM Modules accepted: Orders * JOSE Clancy - 09/12/2024 11:00 AM EST CHIEF COMPLAINT: Asthma, Anxiety, and Follow-up IDENTIFIER: Ankita Anderson is a 59 y.o. old female. [...] hypertension Throat cancer Maternal Grandfather Diabetes Father [place] Breast cancer Neg Hx Colon cancer Neg [...] - Continue famotidine as prescribed - Consult spar finisher for medication timing Possible carpal tunnel syndrome [...] Description 10/19/2024 7:30 AM EDT Ancillary Procedure [facility] Associates - [address] [place] [address] 10/23/2024 1:00 PM EDT Office Visit Gastroenterology - [place] [address] [place] [address] Berta Fernandez PA [address] [place] [address] 03/13/2025 10:15 AM EDT Office Visit Adult Medicine [address] [phone] Yancy Goncalves PA [address] [place] [address] 05/22/2025 9:00 AM EDT Office Visit Adult Medicine [address] [phone] Minnie Turner MD [address] [place] [address] Scheduled Orders Name Type Priority Associated Diagnoses [...] use documented in this encounter Care Teams Sales Order Administrator Relationship Specialty Start Date End Date Minnie Turner MD [address] [place] [address] PCP - General Internal Medicine 04/02/04 documented as of this encounter
--- OUTSIDE RECORDS SUMMARY | 2024-10-04 12:19 | XMS_ITS | Clinical Summary ---
Author Organization [facility] Address [address] [place] [address] Phone Care Team Providers Care Carrier Blower Name Role Phone Minnie Turner MD Primary Care Provider [phone] Allergies Active Allergy Reactions Criticality Noted Date [...] day. 90 each 1 09/13/19 25 Active famotidine (PEPCID) 20 mg tablet TAKE 1 TABLET BY MOUTH TWICE A DAY 180 tablet 3 09/14/19 25 Active famotidine (PEPCID) 20 mg tablet TAKE 1 TABLET BY MOUTH TWICE A DAY 02/15/20 24 025 Discontinued fluticasone (Flonase Sensimist) 27.5 mcg/actuation nasal spray 2 Sprays by Nasal route daily. 12/07/19 24 025 Discontinued(R eorder) loratadine (CLARITIN) 10 mg tablet Take 1 Tablet by mouth daily. 02/17/20 23 025 Discontinued(R eorder) nitrofurantoi n, macrocrystal- monohydrate, (MACROBID) 100 mg capsule Take 1 capsule (100 mg total) by mouth 2 (two) times a day for 5 days. 10 each 09/13/19 25 025 Active Problems Problem Noted Date Diagnosed Date [...] Encounters Date Type Department Care Team Description 09/18/2024 Telephone Adult [address] [phone] Minnie Turner MD New Med Request (Due to Hospital ER visit of broken leg) 09/13/2024 2:15 PM EST Office Visit [address] [phone] Minnie Turner MD Urine frequency (Primary Dx); Acute UTI; Moderate persistent asthma without complication 09/12/2024 11:00 AM EST Office Visit [address] [phone] Marcela Celis PA Chest pain, unspecified type (Primary Dx); Gastroesophageal reflux disease, unspecified whether esophagitis present; Tobacco use 09/04/2024 Nurse Triage [address] [phone] Minnie Turner MD Hernia from Last 3 [...] Medical History Relation Name Comments Diabetes Father [place] Throat cancer Maternal Grandfather Diabetes Mother endstage [...] Description 10/19/2024 7:30 AM EDT Ancillary Procedure [facility] Associates - [address] [place] [address] 10/23/2024 1:00 PM EDT Office Visit Gastroenterology - [place] [address] [facility] [address] [place] [address] Berta Fernandez PA [address] [address] 03/13/2025 10:15 AM EDT Office Visit Adult Medicine [address] [phone] Yancy Goncalves PA [address] [place] [address] 05/22/2025 9:00 AM EDT Office Visit Adult Medicine [address] [phone] Minnie Turner MD [address] [place] [address] Health Maintenance Due Date Last Done Comments Hepatitis B Vaccines (1 of 3 - 19+ 3-dose series) 1985 Zoster Vaccines (1 of 2) 2016 Cervical Cancer Screening: P ap Smear 01/21/2017 01/21/2014, 01/21/2014 Colorectal Cancer Screening: FIT-DNA (Cologuard) 07/17/2022 Lung [...] Cholesterol Screening (Lipid Panel) 12/06/2028 12/07/2023, 12/07/2023 DTaP,Tdap,and Td Vaccines (3 - Td or Tdap) 12/15/2031 12/14/2021, 02/15/2011 HIV Screening Completed 12/03/2014 Hepatitis C Screening [...] Constipation, unspecified HEPATITIS C SCREENING Routine 12/03/2014 HIV SCREENING Routine 12/03/2014 HPV Routine 01/21/2014 from Last 3 Months or Most Recently Relevant to Health Maintenance Results * Culture urine (09/13/2024 3:29 PM EST) [facility] Culture, Urine <10,000 CFU/mL gram negative bacilli, insignificant count, no further workup 09/14/2024 1:17 PM EST [facility] Urine Urine specimen obtained by clean catch procedure / Unknown Non-blood Collection / Unknown 09/13/2024 3:29 PM EST 09/13/2024 3:30 PM EST us Marcela GARCIA LAB MICROBIOLOGY - GENERAL OR DERABLES Final Result [facility] [address] [place] [address], [place] [phone] * (ABNORMAL) POC Urine Non-Auto W/O Micro (09/13/2024 2:37 PM EST) [facility] GLUCOSE POC Negative Negative, Trace mg/dL Leukocytes [...] ORDERABLES Final Result * Depression Screening (12/07/2023) [facility] Depression Screening Abstracted Ruth Yu MD HEALTH MAINTENANCE Final Result * (ABNORMAL) Lipid panel (12/07/2023) [facility] LDL/HDL Ratio 3 0 - 4 Triglycerides [...] IMG XR PROCEDURES Final Resul t * Hm HIV Screening (12/03/2014) HIV Screening Abstracted Historical Provider HEALTH MAINTENANCE Final Result * Hepatitis C Screening (12/03/2014) Pathologist [facility] Hepatitis C Screening Abstracted Historical Provider HEALTH MAINTENANCE Final Result * Cervical Cancer Screening: HPV (01/21/2014) Pathologist [facility] Cervical Cancer Screening: HPV abstracted ,negative Historical Provider HEALTH MAINTENANCE Final Result from Last 3 Months or Most Recently Relevant to Health Maintenance Insurance [employer] MEDICARE Member Subscriber Plan / Payer (Ef fective 2024-Present) Name:Ankita Anderson Relation to Subscriber:Self Name:Ankita Anderson Payer ID:[id number] Group ID:[id number] Type:Not on file Address: [place] [address] [place] [id number] Care Teams Carrier Blower Relationship Specialty Start Date End Date Minnie Turner MD [address] [place] [address] PCP - General Internal Medicine 04/02/04
--- OUTSIDE RECORDS SUMMARY | 2024-10-04 12:19 | XMS_ITS | Encounter Summary ---
Author Organization [facility] [place] [address] Care Team Providers Care Obstetrical Nurse Name Role Phone Minnie Turner MD Primary Care Provider [phone] Reason for Visit * Reason Comments UTI Asthma Encounter Details Date Type Department Care Team (Late st Contact Info) Description 09/13/2024 2:15 PM EST Office Visit Adult Medicine [facility] [address] [place], [place] [phone] Minnie Turner MD [address] [place], [place] Urine frequency (Primary Dx); Acute UTI; Moderate [...] PM ES T Respiratory Rate 16 09/13/2024 2:0 7 PM EST Oxygen Saturation 98% 09/13/2024 2:07 PM EST Inhaled Oxygen Concentration - - Weight 80.2 kg (176 lb 12.8 oz) 09/13/2024 2:07 PM EST Height 167.6 cm (5' 6 ) 09/13/2024 2:07 PM EST Body Mass Index 28.54 09/13/2024 2:07 PM EST documented in this encounter Ordered Prescriptions Prescription Sig Dispense Quantity Refills Last Filled Start Date End Date loratadine (CLARITIN) 10 mg tablet Take 1 tablet (10 mg total) by mouth 1 (one) time each day. 90 each 1 09/13/2024 fluticasone (Flonase Sensimist) 27.5 mcg/actuation nasal spray Administer 1 spray into each nostril 1 (one) time each day. 10 g 3 09/13/2024 nitrofurantoin, macrocrystal-monoh ydrate, (MACROBID) 100 mg capsule Take 1 capsule (100 mg total) by mouth 2 (two) times a day for 5 days. 10 each 09/13/2024 5 documented in this encounter Progress [...] hypertension Throat cancer Maternal Grandfather Diabetes Father [place] Breast cancer Neg Hx Colon cancer Neg [...] Description 10/19/2024 7:30 AM EDT Ancillary Procedure [facility] Cardiology Associates - [address] [place] [address] 10/23/2024 1:00 PM EDT Office Visit Gastroenterology - [place] [facility] [address] [facility] [address] [place] [address] Berta Fernandez PA [address] [facility] [address] [place] [address] 03/13/2025 10:15 AM EDT Office Visit Adult Medicine [address] [phone] Yancy Goncalves PA [address] [place] [address] 05/22/2025 9:00 AM EDT Office Visit Adult Medicine [address] [phone] Minnie Turner MD [address] [place] [address] Scheduled Orders Name Type Priority Associated Diagnoses [...] Final Result [facility] [address] [place] [address], * (ABNORMAL) POC Urine Non-Auto W/O Micro [...] documented as of this encounter Care Teams Obstetrical Nurse Relationship Specialty Start Date End Date Minnie Turner MD [address] [place] [address] PCP - General Internal Medicine 04/02/04 documented as of this encounter
== END 2024-10-04 11:25 | disposition home or self-care (01) ==
PROVIDERS: PCP Internal Medicine; Visit Provider Physician Assistant
DX: S92.321A Displaced fracture of second metatarsal bone, right foot, initial encounter for closed fracture (principal)
CPT/HCPCS: 99203

== ENCOUNTER → 2024-10-04 10:33 | Outpatient (BNV) | payer OTHER, SELFPAY | PROVIDERS: Visit Provider Specialist | DX: S92.321A Displaced fracture of second metatarsal bone, right foot, initial encounter for closed fracture (principal) | CPT/HCPCS: 73630 ==

== ENCOUNTER 2024-10-04 11:04 | Outpatient (REF) | payer OTHER, SELFPAY ==
--- NOTE | ~2024-10-04 | XR_ITS ---
CLINICAL HISTORY: S92.351A - Displaced fracture of fifth metatarsal bone, right foot, init... 3 view right foot Comparison: None Findings: There is a fracture at the base of the 2nd metatarsal with slight widening of the adjacent space between the 1st and 2nd metatarsals. If there is clinical concern for Lisfranc injury, consider MRI to further characterize. No significant loss of joint space, osteophytes, or erosions. No ankle effusion. No radiopaque foreign body. IMPRESSION: 1. 2nd metatarsal fracture. This document has been electronically signed by: Aaron Cuevas MD on 10/04/2024 19:18:29
--- OUTSIDE RECORDS SUMMARY | 2024-10-05 12:53 | XMS_ITS | Encounter Summary ---
Author Organization [facility] Address [address] [place] [address] Care Team Providers Care Bankman Name Role Phone Minnie Turner MD Primary Care Provider [phone] Reason for Visit * Reason Onset Date Comments Hernia 09/04/2024 Encounter Details Date Type Department Care Team (Late st Contact Info) Description 09/04/2024 Nurse Triage Adult Medicine [facility] [address] [place], [place] [phone] Minnie Turner MD [address] [place] [address] Hernia Social History Tobacco Use Types Packs/Day [...] Pt. Is not willing to go to [facility] she will go to [facility] and havesomeone take her documented in this encounter Plan of Treatment Upcoming Encounters Date Type Department Care Team (Late st Contact Info) Description 10/19/2024 7:30 AM EDT Ancillary Procedure [facility]iology Associates - [address] [place] [address] 10/23/2024 1:00 PM EDT Office Visit Gastroenterology - [place] [address] [place] [address] Berta Fernandez PA [address] [place] [address] 03/13/2025 10:15 AM EDT Office Visit Adult Medicine [address] [phone] Yancy Goncalves PA [address] [place] [address] 05/22/2025 9:00 AM EDT Office Visit Adult Medicine [address] [phone] Minnie Turner MD [address] [place] [address] documented as of this encounter Visit Diagnoses Not on filedocumented in this encounter Care Teams Bankman Relationship Specialty Start Date End Date Minnie Turner MD [address] [place] [address] PCP - General Internal Medicine 04/02/04 documented as of this encounter
--- OUTSIDE RECORDS SUMMARY | 2024-10-05 12:54 | XMS_ITS | Encounter Summary ---
Author Organization [facility] Address [address] [place] [address] Care Team Providers Care Body And Fender Worker Name Role Phone Minnie Turner MD Primary Care Provider [phone] Reason for Visit * Reason Onset Date Comments New Med Request 09/18/2024 Due to Hospital ER visit of broken leg Encounter Details Date Type Department Care Team (Late st Contact Info) Description 09/18/2024 Telephone Adult Medicine [facility] [address] [place], [place] [phone] Minnie Turner MD [address] [place] [address] New Med Request (Due to Hospital ER [...] Hospital ER visit. She was seen in [facility] 09/17/2024 for a fall and later was informed that she has a fracture and a broken right ankle or leg. She would like to ask for a refill of the medication she received from the hospital Motrin 600 MG, take every 4-6 hours as needed. If possible to send it to [address] [address]. If you have any question call patient via phone number [phone]. documented in this encounter Plan of Treatment Upcoming Encounters Date Type Department Care Team (Late st Contact Info) Description 10/19/2024 7:30 AM EDT Ancillary Procedure [facility] Cardiology Associates - [address] [place] [address] 10/23/2024 1:00 PM EDT Office Visit Gastroenterology - [place] [address] [place] [address] Berta Fernandez PA [address] [place] [address] 03/13/2025 10:15 AM EDT Office Visit Adult Medicine [address] [phone] Yancy Goncalves PA [address] [place] [address] 05/22/2025 9:00 AM EDT Office Visit Adult Medicine [address] [phone] Minnie Turner MD [address] [place] [address] documented as of this encounter Visit Diagnoses Not on filedocumented in this encounter Care Teams Body And Fender Worker Relationship Specialty Start Date End Date Minnie Turner MD [address] [place] [address] PCP - General Internal Medicine 04/02/04 documented as of this encounter
--- OUTSIDE RECORDS SUMMARY | 2024-10-05 12:54 | XMS_ITS | Clinical Summary ---
Author Organization 175 [facility] Address [address] [place] [address] Phone Care Team Providers Care Tube Draw Helper Name Role Phone Minnie Turner MD Primary Care Provider [phone] Allergies Active Allergy Reactions Criticality Noted Date [...] Department Care Team Description 09/18/2024 Telephone Adult [address] [phone] Minnie Turner MD New Med Request (Due to Hospital ER visit of broken leg) 09/13/2024 2:15 PM EST Office Visit [address] [phone] Minnie Turner MD Urine frequency (Primary Dx); Acute UTI; Moderate persistent asthma without complication 09/12/2024 11:00 AM EST Office Visit [address] [phone] Marcela Celis PA Chest pain, unspecified type (Primary Dx); Gastroesophageal reflux disease, unspecified whether esophagitis present; Tobacco use 09/04/2024 Nurse Triage [address] [phone] Minnie Turner MD Hernia from Last 3 [...] Medical History Relation Name Comments Diabetes Father [place] Throat cancer Maternal Grandfather Diabetes Mother endstage [...] Description 10/19/2024 7:30 AM EDT Ancillary Procedure [facility]iology Associates - [address] [place] [address] 10/23/2024 1:00 PM EDT Office Visit Gastroenterology - [place] [address] [facility] [address] [place] [address] Berta Fernandez PA [address] [address] 03/13/2025 10:15 AM EDT Office Visit Adult Medicine [address] [phone] Yancy Goncalves PA [address] [place] [address] 05/22/2025 9:00 AM EDT Office Visit Adult Medicine [address] [phone] Minnie Turner MD [address] [place] [address] Health Maintenance Due Date Last Done Comments [...] * Culture urine (09/13/2024 3:29 PM EST) [facility] Culture, Urine <10,000 CFU/mL gram negative bacilli, insignificant count, no further workup 09/14/2024 1:17 PM EST [facility] Urine Urine specimen obtained by clean catch procedure / Unknown Non-blood Collection / Unknown 09/13/2024 3:29 PM EST 09/13/2024 3:30 PM EST us Marcela GARCIA LAB MICROBIOLOGY - GENERAL OR DERABLES Final Result [facility] [address] [place] [address], [place] [phone] * (ABNORMAL) POC Urine Non-Auto W/O Micro (09/13/2024 2:37 PM EST) [facility] GLUCOSE POC Negative Negative, Trace mg/dL Leukocytes [...] ORDERABLES Final Result * Depression Screening (12/07/2023) [facility] Depression Screening Abstracted Ruth Yu MD HEALTH MAINTENANCE Final Result * (ABNORMAL) Lipid panel (12/07/2023) [facility] LDL/HDL Ratio 3 0 - 4 Triglycerides [...] Result * Hepatitis C Screening (12/03/2014) Pathologist [facility] Hepatitis C Screening Abstracted Historical Provider HEALTH MAINTENANCE Final Result * Cervical Cancer Screening: HPV (01/21/2014) Pathologist [facility] Cervical Cancer Screening: HPV abstracted ,negative Historical Provider HEALTH MAINTENANCE Final Result from Last 3 Months or Most Recently Relevant to Health Maintenance Insurance [employer] MEDICARE Member Subscriber Plan / Payer (Ef fective 2024-Present) Name:Ankita Anderson Relation to Subscriber:Self Name:Ankita Anderson Payer ID:[id number] Group ID:[id number] Type:Not on file Address: [place] [address] [place] [phone] Care Teams Tube Draw Helper Relationship Specialty Start Date End Date Minnie Turner MD [address] [place] [address] PCP - General Internal Medicine 04/02/04
--- OUTSIDE RECORDS SUMMARY | 2024-10-05 12:54 | XMS_ITS | Encounter Summary ---
Author Organization [facility] [place] [address] Care Team Providers Care Communications Maintainer Name Role Phone Minnie Turner MD Primary Care Provider [phone] Reason for Visit * Reason Comments UTI Asthma Encounter Details Date Type Department Care Team (Late st Contact Info) Description 09/13/2024 2:15 PM EST Office Visit Adult Medicine [facility] [address] [place], [place] [phone] Minnie Turner MD [address] [place], [place] Urine frequency (Primary Dx); Acute UTI; [...] hypertension Throat cancer Maternal Grandfather Diabetes Father [place] Breast cancer Neg Hx Colon cancer Neg [...] Description 10/19/2024 7:30 AM EDT Ancillary Procedure [facility]iology Associates - [address] [place] [address] 10/23/2024 1:00 PM EDT Office Visit Gastroenterology - [place] [facility] [address] [facility] [address] [place] [address] Berta Fernandez PA [facility] [address] [place] [address] 03/13/2025 10:15 AM EDT Office Visit Adult Medicine [address] [phone] Yancy Goncalves PA [address] [place] [address] 05/22/2025 9:00 AM EDT Office Visit Adult Medicine [address] [phone] Minnie Turner MD [address] [place] [address] Scheduled Orders Name Type Priority Associated Diagnoses [...] no further workup 09/14/2024 1:17 PM EST [facility] Urine Urine specimen obtained by clean catch procedure / Unknown Non-blood Collection / Unknown 09/13/2024 3:29 PM EST 09/13/2024 3:30 PM EST us Quiana GARCIA LAB MICROBIOLOGY - GENERAL OR DERABLES Final Result [facility] [address] [place] [address], * (ABNORMAL) POC Urine Non-Auto W/O Micro [...] documented as of this encounter Care Teams Communications Maintainer Relationship Specialty Start Date End Date Minnie Turner MD [address] [place] [address] PCP - General Internal Medicine 04/02/04 documented as of this encounter
--- OUTSIDE RECORDS SUMMARY | 2024-10-05 12:54 | XMS_ITS | Encounter Summary ---
Author Organization [facility] Address [address] [place] [address] Care Team Providers Care Rotary Drum Dyer Name Role Phone Minnie Turner MD Primary Care Provider [phone] Reason for Referral * Cardiac Stress Testing (Routine) - Authorized Specialty Diagnoses / Procedures Referred By Contac t Referred To Contact Cardiology Diagnoses Chest pain, unspecified type Procedures Exercise stress test Marcela Celis PA [address] [place] [address] Phone: tel: fax: [facility] Referral ID Status Reason Start Date Expiration Date V isits Requested Visits Authorized [id number] Authorized 09/12/2024 09/12/2025 1 1 Reason for Visit * Reason Comments Asthma Anxiety Follow-up Encounter Details Date Type Department Care Team (Late st Contact Info) Description 09/12/2024 11:00 AM EST Office Visit Adult Medicine [address] [phone] Marcela Celis PA [address] [place], [place] Chest pain, unspecified type (Primary Dx); [...] sent through Care Everywhere. * Chest Pain (Citizen Of [place]) * Acid-Reducing Medicines: General Info (Citizen Of [place]) * GERD (Citizen Of [place]) documented in this encounter Progress Notes * [...] hypertension Throat cancer Maternal Grandfather Diabetes Father [place] Breast cancer Neg Hx Colon cancer Neg [...] - Continue famotidine as prescribed - Consult freelance operator for medication timing Possible carpal tunnel syndrome [...] Description 10/19/2024 7:30 AM EDT Ancillary Procedure [facility] [address] [place] [address] 10/23/2024 1:00 PM EDT Office Visit Gastroenterology - [place] [address] [place] [phone] Berta Fernandez PA [address] [place] [address] 03/13/2025 10:15 AM EDT Office Visit Adult Medicine [address] [phone] Yancy Goncalves PA [address] [place] [phone] 05/22/2025 9:00 AM EDT Office Visit Adult Medicine [address] [phone] Minnie Turner MD [address] [place] [address] Scheduled Orders Name Type Priority Associated Diagnoses [...] use documented in this encounter Care Teams Rotary Drum Dyer Relationship Specialty Start Date End Date Minnie Turner MD [address] [place] [address] PCP - General Internal Medicine 04/02/04 documented as of this encounter
== END 2024-10-04 11:05 | disposition home or self-care (01) ==
LOC: HO.HOSX 11:04
PROVIDERS: Visit Provider Physician Assistant
DX: S92.324A Nondisplaced fracture of second metatarsal bone, right foot, initial encounter for closed fracture (principal)
CPT/HCPCS: 73630; 99202

== ENCOUNTER 2024-12-26 09:27 | Outpatient (REF) | payer OTHER, SELFPAY ==
--- NOTE | ~2024-12-26 | XR_ITS ---
EXAMINATION: XR FOOT, RIGHT CLINICAL INFORMATION: S92.351A - Displaced fracture of fifth metatarsal bone, right foot, init... COMPARISON: October 04, 2024. TECHNIQUE: AP, lateral, and oblique views of the right foot. FINDINGS: Mild sclerotic margins at the likely intra-articular comminuted fracture at the base of the second metatarsal. There is a 2 mm gap at the first and second metatarsal joint space. Osteopenia versus osteoporosis. Degenerative changes in the proximal and distal interphalangeal joints of the toes. Small spur, calcaneus. Degenerative changes in the tarsal bones. No subcutaneous emphysema. No metallic or radiopaque foreign body. Small exostosis at the Achilles tendon insertion. XR/XR foot RT min 3V IMPRESSION: Healing comminuted fracture at the base of the second metatarsal. Lisfranc fracture cannot be excluded. Electronically signed by: Reji Lyn MD 12/26/2024 10:24 AM EDT
--- OUTSIDE RECORDS SUMMARY | 2024-12-27 09:42 | XMS_ITS | Clinical Summary ---
Author Organization 175 [facility] Address [address] [place] [address] Phone Care Team Providers Care Ornament Stapler Name Role Phone Minnie Turner MD Primary Care Provider [phone] Allergies Active Allergy Reactions Criticality Noted Date [...] Medical History Relation Name Comments Diabetes Father [place] Throat cancer Maternal Grandfather Diabetes Mother endstage [...] 10:15 AM EDT Office Visit Adult Medicine [address] [phone] Yancy Goncalves PA [address] [place] [address] 05/22/2025 9:00 AM EDT Office Visit Adult Medicine [facility] [address] [place] [address] Minnie Turner MD [address] [place] [address] Health Maintenance Due Date Last Done Comments [...] Resul t * HIV Screening (12/03/2014) Pathologist [facility] HIV Screening Abstracted Historical Provider HEALTH MAINTENANCE Final Result * Hepatitis C Screening (12/03/2014) Pathologist [facility] Hepatitis C Screening Abstracted Historical Provider HEALTH MAINTENANCE Final Result * Cervical Cancer Screening: HPV (01/21/2014) Pathologist [facility] Cervical Cancer Screening: HPV abstracted ,negative us Historical Provider HEALTH MAINTENANCE Final Result from Last 3 Months or Most Recently Relevant to Health Maintenance Insurance [employer] Member Subscriber Plan / Payer (Ef fective 2024-Present) Name:Ankita Anderson Relation to Subscriber:Self Name:Ankita Anderson Payer ID:[id number] Group ID:[id number] Type:Not on file Address: [place] [address] [place] [id number] Care Teams Ornament Stapler Relationship Specialty Start Date End Date Minnie Turner MD [address] [place] [address] PCP - General Internal Medicine 04/02/04
== END 2024-12-26 09:28 | disposition home or self-care (01) ==
LOC: HO.HOSX 09:27
PROVIDERS: Visit Provider Physician Assistant
DX: S92.351A Displaced fracture of fifth metatarsal bone, right foot, initial encounter for closed fracture (principal); X58.XXXA Exposure to other specified factors, initial encounter
CPT/HCPCS: 73630; 99212

== ENCOUNTER 2024-12-26 09:55 | Outpatient (AMB) | payer OTHER, SELFPAY ==
--- NOTE | 2024-12-26 10:06 | A.OFFVIS_ITS ---
Vital Signs 12/26/24 10:09 Height 5 ft 6 in Weight 182 lb BMI 29.4 Intake Visit Reasons: OV-RT foot, 2nd metatarsal fx, DOI 09/17/24 Intake Note: Ankita is a 59 year old female who presents today for a follow up of RT foot, 2nd metatarsal fracture, DOI 09/17/24. X-rays updated. Patient reports ongoing pain and swelling at night. Her pain is located at the top of her foot and presents with applying weight. States she continues to limp and with stair use she has to take one step out of time. She has concerns of discoloration in her foot. As well as numbness with lifting up her toes. Allergies orange Allergy (Verified 12/26/24 10:11) Unknown Medication List - Last Reconciled 12/26/24 by Krish Gaviria PA-C albuterol sulfate 90 mcg/actuation inhalation clonazepam mg PO famotidine mg PO fluticasone furoate-vilanterol 100-25 mcg/dose inhalation ibuprofen 800 mg PO Q8H PRN 30 days loratadine 10 mg PO DAILY olanzapine 20 mg PO BEDTIME sucralfate mL PO venlafaxine ER mg PO DAILY HPI HPI OV-RT foot, 2nd metatarsal fx, DOI 09/17/24: Details: 59-year-old female returns to the office today for a follow-up right 2nd metatarsal fracture date of injury 09/17/2024. She states since her date of injury she has been having some discomfort with ambulation and needs to modify the way she ambulates for example walking up and down the stairs 1 ft at a time. She has discontinued the use of the boot and is now wearing Crocs because she feels this is what is most comfortable. [facility] Social History Patient Tobacco Use Status: Current everyday Tobacco user Current occupational status: unemployed Review of Systems Const All systems reviewed & are unremarkable except as noted in HPI and below Physical Exam Vital Signs: BMI result Body Mass Index 29.4 Const General: cooperative and no acute distress Orientation/consciousness: patient oriented x3 Resp Effort & Inspection: normal respiratory effort and able to speak in complete sentences Cardio Peripheral pulses: Peripheral pulses 2+ throughout Neuro General: patient oriented x3 Extrem Other: Right foot normal inspection. Mild swelling over the dorsum of the foot with without significant tenderness at the base of the 2nd metatarsal. She is able to plantar and dorsiflex. EHL intact. NVI. Results Reviewed Results Reviewed: Xrays were obtained in the office today and personally reviewed by me of the right foot show minimally displaced fx at the base of the 2nd metatarsal with callus formation Assessment & Plan Assessment & Plan (1) Metatarsal fracture: Code(s): S92.309A - Fracture of unspecified metatarsal bone(s), unspecified foot, initial encounter for closed fracture Category: Medical Qualifiers: Encounter type: initial encounter Fracture alignment: displaced Fracture type: closed Laterality: right Metatarsal bone: second Qualified Code(s): S92.321A - Displaced fracture of second metatarsal bone, right foot, initial encounter for closed fracture Plan: I encouraged her to work with physical therapy, an order has been placed today. She should work on gait training and strengthening exercises. I did send her a prescription for ibuprofen to take 3 times a day for the next 2 weeks to help with discomfort and swelling. She should increase activities as tolerated and if symptoms arise or persist she will contact me otherwise she will follow up as needed. Orders: Orders PT Evaluation and Treatment Today S92.321A - Displaced fracture of second metatarsal bone, right foot, initial encounter for closed fracture XR foot RT min 3V Today S92.351A - Displaced fracture of fifth metatarsal bone, right foot, initial encounter for closed fracture Medications: New ibuprofen 800 mg PO Q8H PRN 90 tabs 3RF pain 30 days S52.209D - Unspecified fracture of shaft of unspecified ulna, subsequent encounter for closed fracture with routine healing Coding Level of Care Code Est Pt Level 3 (93841) Complex EM visit Add On G2211 Diagnoses Closed displaced fracture of second metatarsal bone of right foot, initial encounter S92.321A Encounter type: initial encounter Fracture alignment: displaced Fracture type: closed Laterality: right Metatarsal bone: second
[2024-12-26 10:09] VITALS: BMI 29.4
--- OUTSIDE RECORDS SUMMARY | 2024-12-26 11:18 | XMS_ITS | Clinical Summary ---
Author Organization 175 [facility] Address [address] [place] [address] Phone Care Team Providers Care Immigration Patrol Inspector Name Role Phone Minnie Turner MD Primary Care Provider [phone] Allergies Active Allergy Reactions Criticality Noted Date Comments Fruit Extracts Hives 09/16/2011 ORANGES Medications calcium carbonate (TUMS ORAL) Take 3 Tablets by mouth 4 times daily. Active albuterol 2.5 mg /3 mL (0.083 %) nebulizer solution Take 1 Vial by nebulization every 4 hours as needed for Wheezing. 2 Active clonazePAM (KlonoPIN) 1 mg tablet Take 1 Tab by mouth 2 times daily as needed. 0 Active fluticasone furoate-vilante roL (BREO ELLIPTA) 100-25 mcg/dose inhaler Inhale 1 Puff into the lungs daily. 4 Active OLANZapine (ZyPREXA) 20 mg tablet TAKE 1 TABLET BY MOUTH EVERYDAY AT BEDTIME 2 Active venlafaxine XR (EFFEXOR-XR) 75 mg 24 hr capsule Take 1 Capsule by mouth daily. 3 Active Ventolin HFA 90 mcg/actuation inhaler INHALE 2 PUFFS INTO THE LUNGS EVERY 4 HOURS NEEDED FOR WHEEZING OR SHORTNESS OF BREATH 18 g 5 Active mupirocin (BACTROBAN) 2 % ointment APPLY THIN FILM TO AFFECTED AREAS ON CORNERS OF MOUTH 2-3 TIMES DAILY FOR 7 DAYS. 22 g 4 Active fluticasone (Flonase Sensimist) 27.5 mcg/actuation nasal spray Administer 1 spray into each nostril 1 (one) time each day. 10 g 3 5 Active loratadine (CLARITIN) 10 mg tablet Take 1 tablet (10 mg total) by mouth 1 (one) time each day. 90 each 1 5 Active famotidine (PEPCID) 20 mg tablet TAKE 1 TABLET BY MOUTH TWICE A DAY 180 tablet 3 5 Active Active Problems Problem Noted Date Diagnosed Date [...] pain 12/07/2023 S/P cholecystectomy 03/04/2023 09/13/19 25 Immunizations Name Administration Dates Next Due Influenza [...] Medical History Relation Name Comments Diabetes Father [place] Throat cancer Maternal Grandfather Diabetes Mother endstage kidney disease with kidney transplant, hypertension Breast cancer Neg Hx Colon cancer Neg Hx Ovarian cancer Neg Hx Relation Name Status Comments Father Maternal Grandfather Mother Social History Tobacco Use Types Packs/Day Years Used Date Smoking Tobacco: Every Day Cigarettes 1 39.4 Started: 08/08/1985 Smokeless Tobacco: Never Tobacco Cessation:Ready [...] Care Team (Late st Contact Info) Description 03/13/2025 10:15 AM EDT Office Visit Adult Medicine [address] [phone] Yancy Goncalves PA [address] [place] [address] 05/22/2025 9:00 AM EDT Office Visit Adult Medicine [facility] [address] [place] [address] Minnie Turner MD [address] [place] [address] Health Maintenance Due Date Last Done Comments [...] Vaccine ( - 2023-2 5 season) 2024 Depression Screening 12/06/2024 12/07/2023 Breast Cancer Screening 01/18/2025 01/18/2023 Influenza Vaccine (Season Ended) 2025 06/22/2012 Cholesterol Screening (Lipid Panel) 12/06/2028 12/07/2023, 12/07/2023 [...] age to complete this topic Meningococcal B Vaccine Aged Out No l onger eligible based on patient's age to complete this topic RSV Immunization Patients Under 20 months Aged Out No longer eligible b ased on patient's age to complete this topic Varicella Vaccines Aged Out No longer eligible based on patient's age to complete this topic Procedures Procedure Name Priority Date/Time Associated Diagnosis Comments DEPRESSION SCREENING Routine 12/07/2023 LIPID PANEL Routine [...] Recently Relevant to Health Maintenance Results * Depression Screening (12/07/2023) Depression Screening Abstracted Historical Provider HEALTH MAINTENANCE Final Result * (ABNORMAL) Lipid panel (12/07/2023) LDL/HDL Ratio 3 0 - 4 Triglycerides 356(A) 0 - 150 mg/dL Cholesterol 95 0 - 200 mg/dL HDL 35(A) >=40 mg/dL LDL Cholesterol 10 0 - 100 mg/dL Blood Venous blood specimen / Unknown Historical Provider LAB BLOOD ORDERABLES Irene l Result * SCREENING MAMMOGRAPHY BI 2-VIEW BREAST [...] Resul t * HIV Screening (12/03/2014) Pathologist [facility] HIV Screening Abstracted Historical Provider HEALTH MAINTENANCE Final Result * Hepatitis C Screening (12/03/2014) Pathologist [facility] Hepatitis C Screening Abstracted Historical Provider HEALTH MAINTENANCE Final Result * Cervical Cancer Screening: HPV (01/21/2014) Pathologist [facility] Cervical Cancer Screening: HPV abstracted ,negative us Historical Provider HEALTH MAINTENANCE Final Result from Last 3 Months or Most Recently Relevant to Health Maintenance Insurance [employer] Member Subscriber Plan / Payer (Ef fective 2024-Present) Name:Ankita Anderson Relation to Subscriber:Self Name:Ankita Anderson Payer ID:[id number] Group ID:[id number] Type:Not on file Address: [place] [address] [address] [id number] Care Teams Immigration Patrol Inspector Relationship Specialty Start Date End Date Minnie Turner MD [address] [place] [address] PCP - General Internal Medicine 04/02/04
== END 2024-12-26 10:40 | disposition home or self-care (01) ==
LOC: HO.HOS 09:56
PROVIDERS: Visit Provider Physician Assistant
DX: S92.321A Displaced fracture of second metatarsal bone, right foot, initial encounter for closed fracture (principal)
CPT/HCPCS: 99213; G2211

== ENCOUNTER → 2024-12-26 09:57 | Outpatient (BNV) | payer OTHER, SELFPAY | PROVIDERS: Visit Provider Radiology Diagnostic Radiology | DX: S92.321A Displaced fracture of second metatarsal bone, right foot, initial encounter for closed fracture (principal) | CPT/HCPCS: 73630 ==

== ENCOUNTER 2025-03-06 10:00 | Outpatient (RCR) | payer OTHER, SELFPAY ==
--- NOTE | 2025-01-23 09:52 | MHC.PT.EP ---
[facility] [place] Office [place] Office [place] Office [address] Clyde Hutchins [address] [phone] F: [phone] F: [phone] F: [phone] F: [phone] Physical Therapy Plan of Care Date of Evaluation: 01/23/25 Date of Surgery: Diagnosis: This is a 59 yo female presenting to skilled PT with a script for R displaced fracture fracture of second met. Assessment: This is a 59 yo female presenting to skilled PT with a script for R displaced fracture fracture of second met. Patient reporting a break in early Sep 2024 when she fell on the ice. She was seen by [facility] ortho. She was found to have a 2nd metatarsal fracture. She did not have surgery but was in a boot for 2 months. She was then provided a shorter boot and then transitioned to a regular walking shoe for the past month. However, she continued to have pain and went back to ortho; it was found on a second x-ray that she had a fifth met fracture as well. Pain is now located at the top of the foot. Pain is described as sharp. Pain increases with walking, standing, driving, descending stairs and at night. She gets swelling every day still, reports that she has a hard time wearing sneakers, does not have a brace and uses Motrin and ice for pain relief. She does not have follow up with ortho scheduled. Assessment reveals pain that ranges from up to a 6/10 at the worst. Patient demos decreased ankle ROM, strength of ankle and hips, TTP at second met and medial malleoli, decreased gait and balance and impaired posture with weight shift to the L, knee valgus and forward head. Based on functional limitations, impaired QOL and pain tolerance patient is a good candidate for skilled PT 2x/wk for 4wks. Frequency and Duration: The patient will be seen 2x/wk for 4wks Short Term Goals: (in 2 weeks) Patient will improve ankle AROM by at least 10 degs without assist for DF and PF Patient will demo good understanding and performance of quad set in multiple different planes without cues from PT to support ankle instability Patient will start descending stair (4 inch) with good mechanics Patient will be I in HEP Alf Goals: (in 4 weeks) Patient will report 75% improvement in balance and strength of LLE as evidenced by reports no of falls or buckling in LE Patient will improve LEFs by 10 points Patient will demo WFL AROM of knee and ankle Patient will demo proper squat and lift techniques without increase in pain Patient will demo improved gait mechanics at least 50% of her day Patient will report less swelling subjectively Treatment Plan: Modalities to reduce pain, spasms and effusion. Manual therapy to restore motion and function. Therapeutic exercise to improve strength and flexibility. Neuromuscular re-education for posture and balance. Therapeutic activities to return to functional activities of daily living. Electronically signed by: Natalie Reddy PT Please sign and return to therapist. Thank you for your referral.
--- NOTE | 2025-04-01 11:01 | MHC.PT.DC ---
[facility] [place] Office [employer] Office [place] Office [address] Clyde Hutchins [address] [phone] F: [phone] F: [phone] F: [phone] F: [phone] Physical Therapy Discharge Report Diagnosis: This is a 59 yo female presenting to skilled PT with a script for R displaced fracture fracture of second met. Date of Surgery: Date of Evaluation: 01/23/25 Date of Discharge: 04/01/25 Treatments to Date: 7 Cancellations to Date: 0 No Shows to Date: 0 Discharge Status: Improved Function Independent with HEP Recommend MD Follow-up Discharge Summary: Patient has had appointments. She is I in her program, has improved her ROM and gait as well as function on the stairs. She does continue to have some pain, swelling and concerns about her anatomy. Educated her to talk with an MD about these but in the mean time continue her HEP as we have plateaued in progress and educated on ice and how to self KT at home. Chart will be DC'd in 30 days unless patient returns. Electronically signed by: Natalie Reddy PT Please sign and return to therapist. Thank you for your referral.
== END 2025-04-01 11:02 | disposition home or self-care (01) ==
LOC: HO.PTCHIC 10:00
PROVIDERS: PCP Internal Medicine; Visit Provider Physician Assistant
DX: S92.321D Displaced fracture of second metatarsal bone, right foot, subsequent encounter for fracture with routine healing (principal)
CPT/HCPCS: 97110; 97140; 97162

== ENCOUNTER 2025-06-18 13:53 | Outpatient (AMB) | payer OTHER, SELFPAY ==
[2025-06-18 14:08] VITALS: BMI 27.4
--- NOTE | 2025-06-18 14:08 | MHC.OFFVIS ---
Vital Signs 06/18/25 14:08 Height 5 ft 6 in Weight 170 lb BMI 27.4 Intake Visit Reasons: pain and swelling of right foot Intake Note: Ankita is a 60 year old female who presents today as a new patient for an evaluation of her right foot pain and swelling. Patient states her swelling has since improved however she is still experiencing pain in her foot. Pain is located on the dorsum aspect of her foot and toes. She has tried a cream an cold pads and has found slight relief for her pain. She mentions she had a previous fracture in her right foot due to a fall back in [facility] where she was then seen at [facility] and referred to ortho. Allergies orange Allergy (Verified 06/18/25 14:09) Unknown HPI HPI pain and swelling of right foot: Details: The patient is a 60-year-old female presenting with right foot pain and bilateral ingrown toenails. In September, the patient experienced a fall resulting in a right foot metatarsal fracture. [facility]. Patient notes she still has persistent pain and swelling. The pain is exacerbated by activity and is described as being more pronounced at the end of the day. The patient also notes pain to her right 5th toe. She states the pain was not present initially after injury however she started noticing the pain more so recently. She notes the pain both when walking and when resting. The patient also experiences issues with an ingrown toenail, which causes significant pain, particularly when it grows into the skin. Previous attempts to remove the entire nail were unsuccessful, and regular trimming of the nail corners was suggested as a management strategy. [facility] Social History Patient Tobacco Use Status: Current everyday Tobacco user Current occupational status: unemployed Review of Systems Const All systems reviewed & are unremarkable except as noted in HPI and below Physical Exam Vital Signs: BMI result Body Mass Index 27.4 Extrem Other: *Bilateral Lower Extremity Focused Exam Vascular: DP/PT 2/4, CFT less than 3 seconds all digits, temperature gradient warm to cool. Mild edema to the dorsal aspect of the right 2nd and 3rd TMT region. Derm: Right hallux nail incurvated medial and lateral border ingrown. Left hallux nail medial border ingrown. Right hallux nail subungual debris and thickening discoloration. Neuro: Protective sensation grossly intact to bilateral lower extremities. MSK: Moderate tenderness on palpation of the dorsal aspect of the 2nd TMT joint. Positive forefoot adduction test. Moderate tenderness on palpation of the medial and lateral border where hallux, and medial border of left hallux. Office Procedures AMB Debridement/Avulsion Podia Details: Procedure: Nail debridement Location: Right and left hallux ingrown nails Anesthesia: N/A Description: The affected toenails were cleansed with an antiseptic solution. Using sterile nail nippers and a [place] blade, the lateral margin and the medial margin of the right hallux nail and the medial border of the left hallux nail were resected. Tolerance: Patient tolerated procedure well, no immediate complications. 78795-Qjahndqtnpo of Nail <6 Procedure code (CPT) selection complete Results Reviewed Results Reviewed: Podiatry X-ray Read: 12/26/2024 X-ray right foot 3 views (AP, MO, Lateral) reviewed which shows comminuted fracture of the base of the 2nd metatarsal, possible diastasis (2mm) of the 1st and 2nd metatarsal. I personally reviewed the imaging and my findings are listed above. Assessment & Plan Assessment & Plan (1) Metatarsal fracture: Code(s): S92.309A - Fracture of unspecified metatarsal bone(s), unspecified foot, initial encounter for closed fracture Category: Medical Qualifiers: Encounter type: initial encounter Fracture alignment: displaced Fracture type: closed Laterality: right Metatarsal bone: second Qualified Code(s): S92.321A - Displaced fracture of second metatarsal bone, right foot, initial encounter for closed fracture Plan: Reviewed right foot x-rays with the patient. Referred for new right foot x-ray (2) Lisfranc's sprain: Code(s): S93.629A - Sprain of tarsometatarsal ligament of unspecified foot, initial encounter Category: Medical Qualifiers: Encounter type: sequela Laterality: right Qualified Code(s): S93.621S - Sprain of tarsometatarsal ligament of right foot, sequela Plan: The patient may have persistent pain in her midfoot due to Lisfranc ligament injury. She is referred for right foot MRI to evaluate for Lisfranc ligament injury. The MRI is necessary to evaluate for possible surgical intervention. (3) Paronychia of great toe of right foot: Code(s): L03.031 - Cellulitis of right toe Category: Medical Plan: Resected right hallux ingrown nail Rx Ciclopirox for fungal infection to the nail (4) Paronychia of great toe, left: Code(s): L03.032 - Cellulitis of left toe Category: Medical Plan: Resected left hallux medial border ingrown nail (5) Hammertoe of right foot: Code(s): M20.41 - Other hammer toe(s) (acquired), right foot Category: Medical Plan: Recommended 5th digit spacer Orders: Orders MR foot RT wo con Today S93.629A - Sprain of tarsometatarsal ligament of unspecified foot, initial encounter XR foot RT min 3V Today S92.321A - Displaced fracture of second metatarsal bone, right foot, initial encounter for closed fracture AMB Debridement/Avulsion Podiatry Today L03.031 - Cellulitis of right toe Medications: New ciclopirox 8% Apply to fungal toenails daily. Remove build-up at the end of the week. 1 appl topical BEDTIME 6.6 mL 3RF fungal toe nails 4 months B35.1 - Tinea unguium Coding Level of Care Code New Pt Level 4 (93337) Diagnoses Closed displaced fracture of second metatarsal bone of right foot, initial encounter S92.321A Encounter type: initial encounter Fracture alignment: displaced Fracture type: closed Laterality: right Metatarsal bone: second Sprain of ligament of tarsometatarsal joint of right foot, sequela S93.621S Encounter type: sequela Laterality: right Paronychia of great toe of right foot L03.031 Paronychia of great toe, left L03.032 Hammertoe of right foot M20.41 CPT Codes Skin Debridement - CPT: 64044-Wstllupkkjr of Nail <6 ([id number]) Time Spent (min) 35
--- OUTSIDE RECORDS SUMMARY | 2025-06-18 15:29 | XMS_ITS | Encounter Summary ---
Author Organization [facility] Address [address] [place] [address] Care Team Providers Care Song Lyricist Name Role Phone Minnie Turner MD Primary Care Provider [phone] Encounter Details Date Type Department Care Team (Late st Contact Info) Description 05/22/2025 Results Follow-Up Adult Medicine [facility] [address], [place] [phone] Minnie Turner MD [address], [place] Social History Tobacco Use Types Packs/Day Years Used Date Smoking Tobacco: Every Day Cigarettes 1 39.9 Started: 08/08/1985 Smokeless Tobacco: Never Comments:Currently 1/2 ppd Alcohol Use Standard Drinks/Week Comments No 0 (1 standard drink = 0.6 oz pur e alcohol) Housing Instability Answer Date Recorde d Are you worried that in the next 2 months you may not have stable housing? No 03/13/2025 Food Access & Nutrition Answer Date Rec orded Do you have access to a vari ety of food including fruits and vegetables? Yes 03/13/2025 Health Literacy Answer Date Recorded How often do you need to hav e someone help you when you read instructions, pamphlets, or other written material from your doctor or pharmacy? Never 03/13/2025 Caregiver: How often do you need to have someone help you when you read instructions, pamphlets, or other written material from your doctor or pharmacy? Not on file 03/13/2025 Financial Risk Answer Date Recorded How hard is it for you to pa y for the very basics like food, housing, medical care, and air conditioning / heating? Not very hard 03/13/2025 Transportation Answer Date Recorded Has the lack of transportati on kept you from meetings, work, or from getting things needed for daily living? No Has the lack of transportati on kept you from medical appointments or from getting medications? No 03/13/2025 Social Isolation Answer Date Recorded How often do you feel lonely or isolated from th ose around you? Never 03/13/2025 Food Risk Answer Date Recorded Within the past 12 months we worried whether our food would run out before we got money to buy more. Never true 03/13/2025 Within the past 12 months th e food we bought just didn't last and we didn't have money to get more. Never true 03/13/2025 Dependent Care Answer Date Recorded Do you need help finding or paying for care for your loved ones. For example, child psychiatrist or elderly care for an older adult? No 03/13/2025 Education Answer Date Recorded Do you think completing more education or training, like finishing a GED, going to college, or learning a trade, would be helpful for you? No 03/13/2025 Employment and Income Answer Date Recor ded During the last four weeks, have you been actively looking for work? No 03/13/2025 Living Situation Answer Date Recorded What is your living situation? Unrecognized valu e 03/13/2025 Comments No Sex and Gender Information Value Date Recorded Sex Assigned at Not on file Legal Sex Female 5:07 AM EST Gender Identity Not on file Sexual Orientation Not on file documented as of this encounter Plan of Treatment Upcoming Encounters Date Type Department Care Team (Late st Contact Info) Description 05/26/2026 3:30 PM EDT Office Visit Adult Medicine [facility] [address], [place] [phone] Yancy Goncalves PA [address], [place] documented as of this encounter Visit Diagnoses Not on filedocumented in this encounter Additional Health Concerns Assessment Noted Time PHQ-9 Depression Total Score: 0 03/13/20 10:00 AM EDT documented as of this encounter Care Teams Song Lyricist Relationship Specialty Start Date End Date Minnie Turner MD [address] [place] [address] PCP - General Internal Medicine 04/02/04 documented as of this encounter
--- OUTSIDE RECORDS SUMMARY | 2025-06-18 15:30 | XMS_ITS | Clinical Summary ---
Author Organization [facility] Address [address] [place] [address] Phone Care Team Providers Care Hydrostatic Tubing Tester Name Role Phone Minnie Turner MD Primary Care Provider [phone] Allergies Active Allergy Reactions Criticality Noted Date Comments Fruit Extracts Hives 09/16/2011 ORANGES Medications clonazePAM (KlonoPIN) 1 mg tablet Take 1 Tab by mouth 2 times daily as needed. 02/21/20 20 Active OLANZapine (ZyPREXA) 20 mg tablet TAKE 1 TABLET BY MOUTH EVERYDAY AT BEDTIME 07/07/20 22 Active venlafaxine XR (EFFEXOR-XR) 75 mg 24 hr capsule Take 1 Capsule by mouth daily. 12/28/19 23 Active mupirocin (BACTROBAN) 2 % ointment APPLY THIN FILM TO AFFECTED AREAS ON CORNERS OF MOUTH 2-3 TIMES DAILY FOR 7 DAYS. 22 g 08/03/20 24 Active famotidine (PEPCID) 20 mg tablet Take 1 tablet (20 mg total) by mouth 2 (two) times a day. 180 tablet 1 02/14/20 25 Active fluticasone (Flonase Sensimist) 27.5 mcg/actuation nasal spray Administer 1 spray into each nostril 1 (one) time each day. 10 g 5 02/19/20 25 Active calcium carbonate (Tums) 500 mg (200 mg elemental calcium) chewable tablet Chew 1 tablet (500 mg total) 4 (four) times a day if needed for indigestion. 120 tablet 5 02/19/20 25 Active loratadine (CLARITIN) 10 mg tablet Take 1 tablet (10 mg total) by mouth 1 (one) time each day. 90 each 1 02/23/20 25 Active albuterol HFA (Ventolin HFA) 90 mcg/actuation inhaler Inhale 2 puffs by mouth every 4 (four) hours if needed for wheezing. 18 g 04/04/20 25 Active albuterol 2.5 mg /3 mL (0.083 %) nebulizer solution Take 3 mL (2.5 mg total) by nebulization every 4 (four) hours if needed for wheezing. 375 mL 4 04/04/20 25 Active nystatin (MYCOSTATIN) cream Apply thin layer to affected area BID 30 g 2 05/22/20 25 Active Breo Ellipta 200-25 mcg/dose inhaler INHALE ONE PUFF BY MOUTH EVERY DAY (BULK) 60 each 2 06/13/20 25 Active ibuprofen (ADVIL,MOTRIN ) 800 mg tablet Take 1 tablet (800 mg total) by mouth every 8 (eight) hours if needed. for pain 01/23/20 25 025 Discontinued(T herapy completed) Breo Ellipta 200-25 mcg/dose inhaler Inhale 1 puff by mouth 1 (one) time each day. 3 each 04/04/20 25 025 Discontinued Active Problems Problem Noted Date Diagnosed Date Schizoaffective disorder, un specified type ([facility] V24, [facility] V28) 05/22/2025 Hypertriglyceridemia 03/13/2025 Closed displaced fracture of second metatarsal bone of right foot 03/13/2025 Overview (03/13/2025): Date of injury 09/17/2024. [facility]. Follows with [place] [facility]. Gastroesophageal reflux disease without esophagi tis 03/09/2022 Globus sensation 03/09/2022 Thyroid nodule 12/30/2021 Overview (05/17/2024): [place] 12/2021: 0.8 x 0.4 x 0.7 cm [...] Encounters Date Type Department Care Team Description 05/22/2025 9:00 AM EDT Office Visit Adult Medicine [address] [phone] Minnie Turner MD Routine general medical examination at a health care facility (Primary Dx); Hypertriglyceridemia ; Other depression; Gastroesophageal reflux disease without esophagitis; Kidney donor; Moderate persistent asthma, unspecified whether complicated; Schizoaffective disorder, unspecified type ([facility] V24, [facility] V28); Cheilitis 05/22/2025 Results Follow-Up Adult Medicine [address] [phone] Minnie Turner MD 03/27/2025 Telephone Adult Medicine [address] [phone] Minnie Turner MD from Last 3 Months Immunizations Immunization Administration Dates Next Due Influenza trivalent, with pr eservative (Fluzone; Afluria) 6mo and older 06/22/2012 Pneumococcal polysaccharide 23 valent (Pneumovax 23) 2yo and older 12/14/2021 Td Tetanus diptheria (Tdvax) 7yo and older 12/14 Tdap Tetanus diptheria acell ular pertussis (Boostrix; Adacel) 7yo and older 02/15/2011 Surgical History Surgery Date Site/Laterality Comments NEPHRECTOMY right; donation CHOLECYSTECTOMY Medical History Medical History Date Comments Kidney donor Anemia, unspecified Unspecified asthma(493.90) 11/19/2005 Tobacco use disorder 06/28/2010 Anxiety 11/10/2010 Hematuria 01/21/2014 CTS (carpal tunnel syndrome) 09/07/2016 : b ilateral Family History Medical History Relation Name Comments Diabetes Father ID Throat cancer Maternal Grandfather Diabetes Mother endstage kidney disease with kidney transplant, hypertension Breast cancer Neg Hx Colon cancer Neg Hx Ovarian cancer Neg Hx Relation Name Status Comments Father Maternal Grandfather Mother Social History Tobacco Use Types Packs/Day Years Used Date Smoking Tobacco: Every Day Cigarettes 1 39.9 Started: 08/08/1985 Smokeless Tobacco: Never Tobacco Cessation:Ready to Q uit: Not Asked; Counseling Given: Not Answered Comments:Currently 1/2 ppd Alcohol Use Standard Drinks/Week [...] care for your loved ones. For example, children's service supervisor or elderly care for an older adult? [...] Sign Reading Time Taken Comments Blood Pressure 112/62 05/22/2025 9:05 AM EDT Pulse 77 05/22/2025 9:05 AM EDT Temperature 35.6 C (96.1 F) 05/22/2025 9:05 AM EDT Respiratory Rate 16 05/22/2025 9:05 AM EDT Oxygen Saturation 96% 05/22/2025 9:05 AM EDT Inhaled Oxygen Concentration - - Weight 81.4 kg (179 lb 8 oz) 05/22/2025 9:05 AM EDT Height 167.6 cm (5' 6 ) 05/22/2025 9:05 AM EDT Body Mass Index 28.97 05/22/2025 9:05 AM EDT Plan of Treatment Upcoming Encounters Date Type Department Care Team (Late st Contact Info) Description 05/26/2026 3:30 PM EDT Office Visit Adult Medicine [facility] [address] [place], [place] [phone] Yancy Goncalves PA [address] [place], [place] Health Maintenance Due Date Last Done Comments Hepatitis B Vaccines (1 of 3 - 19+ 3-dose series) 1985 RSV Immunization Adult Patients (1 - Risk 50-74 years 1-dose series) 2016 Zoster Vaccines (1 of 2) 2016 Cervical Cancer Screening: Pap Smear 01/21/2017 01/21/2014, 01/21/2014 Colorectal Cancer Screening: FIT-DNA (Cologuard) 07/17/2022 Lung Cancer Screening (Low Dose CT) 07/17/2022 Pneumococcal Vaccine: 50+ Years (2 of 2 - PCV) 12/14/2022 12/14/2021 Breast Cancer Screening 01/18/2025 01/18/2023 Influenza Vaccine (#1) 2025 06/22/2012 Social Influencers of Health Screening 03/13/2026 03/13/2025 Medicare Annual Wellness Visit 03/16/2026 Postponed from 07/17 (Not clinically appropriate to address at this time) Cholesterol Screening (Lipid Panel) 05/22/2030 05/22/2025, 12/07/2023, 12/07/2023 DTaP,Tdap,and Td Vaccines (3 - Td or Tdap) 12/15/2031 12/14/2021, 02/15/2011 HIV Screening Completed 12/03/2014 Hepatitis C Screening Completed 12/03/2014 Depression Screening Completed 03/13/2025, 12/07/2023 COVID-19 Vaccine Discontinued HIB Vaccines Aged Out No longer eligi [...] Procedure Name Priority Date/Time Associated Diagnosis Comments COMPREHENSIVE METABOLIC PANEL Routine 05/22/2025 9:37 AM EDT Routine general medical examination at a health care facility LIPID PANEL WITH REFLEX TO DIRECT LDL Routine 05/22/2025 9:37 AM EDT Hypertriglyceridemia DEPRESSION SCREENING Routine 12/07/2023 SCREENING MAMMOGRAPHY BI 2-VIEW BREAST [...] Recently Relevant to Health Maintenance Results * (ABNORMAL) Lipid panel with reflex to direct LDL (05/22/2025 9:37 AM EDT) Cholesterol 85 0 - 200 mg/dL LAB CHEMISTRY METHOD 05/22/2025 12:59 PM EDT [facility] Triglycerides 185(H) 0 - 150 mg/dL LAB CHEMISTRY METHOD 05/22/2025 12:59 PM T [facility] HDL 30(L) >=40 mg/dL LAB CHEMISTRY METHOD 05/22/2025 12:59 PM EDT [facility] LDL Calculated 18 0 - 100 mg/dL LAB CHEMISTRY METHOD 05/22/2025 12:59 PM T [facility] Comment:Estimated LDL Calcul ated using equation: Total cholesterol - HDL cholesterol - (Triglycerides/5) VLDL Cholesterol Leland 37 mg/dL LAB CHEMISTRY METHOD 05/22/2025 12:59 PM T [facility] Non HDL Chol. (LDL+VLDL) 55 <145 mg/dL LAB CHEMISTRY METHOD 05/22/2025 12:59 PM EDT [facility] Chol/HDL Ratio 2.8 0.0 - 4.4 LAB CHEMISTRY METHOD 05/22/2025 12:59 PM [facility] Blood Venous blood specimen / Unknown Venipuncture / Unknown 05/22/2025 9:37 AM EDT 05/22/2025 9:37 AM EDT us Minnie Turner MD LAB BLOOD ORDERABLES Final Resul t [facility] [address] [place] [address], [place] [phone] * (ABNORMAL) Comprehensive metabolic panel (05/22/2025 9:37 AM EDT) Sodium 141 133 - 145 mmol/L LAB CHEMISTRY METHOD 05/22/2025 12:59 PM [facility] Potassium 3.9 3.5 - 5.5 mmol/L LAB CHEMISTRY METHOD 05/22/2025 12:59 PM [facility] Chloride 110 96 - 110 mmol/L LAB CHEMISTRY METHOD 05/22/2025 12:59 PM [facility] CO2 23 21 - 32 mmol/L LAB CHEMISTRY METHOD 05/22/2025 12:59 PM [facility] Anion Gap 8 3 - 11 LAB CHEMISTRY METHOD 05/22/2025 12:59 PM [facility] Glucose 81 70 - 100 mg/dL LAB CHEMISTRY METHOD 05/22/2025 12:59 PM [facility] BUN 14 5 - 25 mg/dL LAB CHEMISTRY METHOD 05/22/2025 12:59 PM [facility] Creatinine 1.12(H) 0.50 - 1.10 mg/dL LAB CHEMISTRY METHOD 05/22/2025 12:59 PM [facility] eGFR 57(L) >=60 mL/min/1. 73m2 LAB CHEMISTRY METHOD 05/22/2025 12:59 PM [facility] Comment:Calculation based on the Chronic Kidney Disease Epidemiology Collaboration (CKD-EPI) equation refit without adjustment for race. BUN/Creatinine Ratio 12.5 LAB CHEMISTRY METHOD 05/22/2025 12:59 PM [facility] Calcium 9.2 8.5 - 10.5 mg/dL LAB CHEMISTRY METHOD 05/22/2025 12:59 PM [facility] AST (SGOT) 19 10 - 42 unit/L LAB CHEMISTRY METHOD 05/22/2025 12:59 PM [facility] ALT (SGPT) 21 10 - 60 unit/L LAB CHEMISTRY METHOD 05/22/2025 12:59 PM [facility] Alkaline Phosphatase 138(H) 42 - 121 unit/L LAB CHEMISTRY METHOD 05/22/2025 12:59 PM [facility] Total Protein 7.4 6.0 - 8.0 g/dL LAB CHEMISTRY METHOD 05/22/2025 12:59 PM [facility] Albumin 4.1 3.2 - 5.0 g/dL LAB CHEMISTRY METHOD 05/22/2025 12:59 PM [facility] Total Bilirubin 0.2 0.0 - 1.4 mg/dL LAB CHEMISTRY METHOD 05/22/2025 12:59 PM [facility] Blood Venous blood specimen / Unknown Venipuncture / Unknown 05/22/2025 9:37 AM EDT 05/22/2025 9:37 AM EDT Minnie Turner MD LAB BLOOD ORDERABLES Final Resul t [facility] [address] [place] [address], * Depression Screening (12/07/2023) [facility] Signature Depression Screening Abstracted us Historical Provider HEALTH MAINTENANCE Final Result * SCREENING MAMMOGRAPHY BI 2-VIEW BREAST [...] interpreted with the aid of computer-aided detection. Comparison is made with 12/15/2012 and as far back as 07/15/2007. Breast parenchyma is heterogeneously dense, limiting mammographic sensitivity. No new suspicious mass, architectural distortion, or suspicious [...] of malignancy. BI-RADS 1 - negative Sara Thomas ASSISTANT PROFESSOR OF EDUCATION IMG XR PROCEDURES Final Resul t * HIV Screening (12/03/2014) HIV Screening Abstracted Historical Provider HEALTH MAINTENANCE Final Result * Hepatitis C Screening (12/03/2014) Hepatitis C Screening Abstracted Historical Provider HEALTH MAINTENANCE Final Result * Cervical Cancer Screening: HPV (01/21/2014) Pathologist [facility] Cervical Cancer Screening: HPV abstracted ,negative us Historical Provider HEALTH MAINTENANCE Final Result from Last 3 Months or Most Recently Relevant to Health Maintenance Insurance Member Subscriber Plan / Payer (Ef fective 2024-Present) Name:ALEXANDRE ANDERSON Relation to Subscriber:Self Name:Alexandre Anderson Payer ID:[id number] Group ID:[id number] Type:Not on file Address: [place] [address] [address] [id number] Care Teams Hydrostatic Tubing Tester Relationship Specialty Start Date End Date Minnie Turner MD [address] [place] [address] SHAUN QUEEN PCP - General Internal Medicine 04/02/04
== END 2025-06-18 14:42 | disposition home or self-care (01) ==
LOC: HO.HPODS 13:54
PROVIDERS: PCP Internal Medicine; Visit Provider Student in an Organized Health Care Education/Training Program
DX: S92.321A Displaced fracture of second metatarsal bone, right foot, initial encounter for closed fracture (principal); S93.62 Sprain of tarsometatarsal ligament of foot; L03.031 Cellulitis of right toe; L03.032 Cellulitis of left toe; M20.41 Other hammer toe(s) (acquired), right foot
CPT/HCPCS: 11720; 99204

== ENCOUNTER → 2025-06-18 13:53 | Outpatient (BNVA) | payer OTHER, SELFPAY | PROVIDERS: PCP Internal Medicine; Visit Provider Student in an Organized Health Care Education/Training Program | DX: S92.321A Displaced fracture of second metatarsal bone, right foot, initial encounter for closed fracture (principal); M79.671 Pain in right foot; S93.62 Sprain of tarsometatarsal ligament of foot; L03.031 Cellulitis of right toe; L03.032 Cellulitis of left toe; L60.0 Ingrowing nail; B35.1 Tinea unguium; M20.41 Other hammer toe(s) (acquired), right foot; X58.XXXA Exposure to other specified factors, initial encounter; Y93.9 Activity, unspecified; Y92.9 Unspecified place or not applicable; Y99.9 Unspecified external cause status | CPT/HCPCS: 11720; 99202 ==

== ENCOUNTER → 2025-07-20 16:39 | Outpatient (BNV) | payer OTHER, SELFPAY | PROVIDERS: PCP Internal Medicine; Visit Provider Radiology Diagnostic Radiology | DX: S93.629A Sprain of tarsometatarsal ligament of unspecified foot, initial encounter (principal); R60.0 Localized edema | CPT/HCPCS: 73718 ==

== ENCOUNTER 2025-07-20 16:40 | Outpatient (REF) | payer OTHER, SELFPAY ==
--- OUTSIDE RECORDS SUMMARY | 2025-07-18 09:00 | XMS_ITS | Encounter Summary ---
Author Organization [facility] Address [address] [place] [address] Care Team Providers Care Kitchen Runner Name Role Phone Minnie Turner MD Primary Care Provider [phone] Reason for Referral * Consultation (Routine) - Authorized Specialty Diagnoses / Procedures Referred By Cait queen Referred To Contact Thoracic Surgery Diagnoses Tobacco use disorder Marcela Celis PA [address] [place] [address] Phone: tel: fax: Lung Screening Program [address] [address] Phone: tel: fax: Referral ID Status Reason Start Date Expiration Date Visits Requested Visits Authorized [id number] Authorized Specialty Services Required 07/18/2026 1 1 Reason for Visit * Reason Comments Numbness Hands and feet Encounter Details Date Type Department Care Team ([facility] Contact Info) Description 07/18/2025 9:00 AM EST Office Visit Adult Medicine [address] [phone] Marcela Celis PA [address] [place], [place] Bilateral carpal tunnel syndrome (Primary Dx); [...] care for your loved ones. For example, early childhood associate teacher or elderly care for an older adult? [...] through Care Everywhere. * Carpal Tunnel Syndrome ([place]) * Carpal Tunnel Syndrome: Exercises ([place]) documented in this encounter Progress Notes * [...] reports she has upcoming appointment with a continuous mining machine coal miner in [place] on 07/23/25 as well as MRI of [...] Diagnosis Date Noted Schizoaffective disorder, unspecified type ([facility] V24, [facility] V28) 05/22/2025 Hypertriglyceridemia 03/13/2025 Closed [...] test, schedule a mammogram, and visit an LATEXER for cervical cancer screening, as her last visit was over two years ago. A lung cancer screening orderwill be placed again, and the patient is advised to schedule the screening. Follow back with PCP in6 months. Medication and lab orders: Orders Placed This Encounter Procedures Ambulatory referral to Lung Screening Program Other orders: AMB REFERRAL TO [facility] LUNG SCREEN[facility] PROGRAM JOSE Clancy on 07/18/2025 [...] office. This chart was generated by the [employer] EMR system and [employer] speech recognition software and may contain inherent [...] disease with kidney transplant, hypertension Diabetes Father [place] Throat cancer Maternal Grandfather Breast cancer Neg [...] EST Clinical Support Lung Screening Program - [address] [place] [address] 08/29/2025 10:00 AM EST Appointment [facility] CT Scan [address] [place] [address] 01/17/2026 8:15 AM EDT Office Visit Adult Medicine [address] [phone] Minnie Turner MD [address] [place] [address] 05/26/2026 3:30 PM EDT Office Visit Adult Medicine [address] [phone] Yancy Goncalves PA [address] [place], [place] Scheduled Referrals Name Type Priority Associated [...] documented as of this encounter Care Teams Kitchen Runner Relationship Specialty Start Date End Date Minnie Turner MD [address] [place] [address] PCP - General Internal Medicine 04/02/04 documented as of this encounter
--- OUTSIDE RECORDS SUMMARY | 2025-07-18 09:35 | XMS_ITS | Encounter Summary ---
Author Organization [facility] [place] [address] Care Team Providers Care Mail Sorting Supervisor Name Role Phone Minnie Turner MD Primary Care Provider [phone] Encounter Details Date Type Department Care Team (Late st Contact Info) Description 07/18/2025 9:35 AM EST Lab Draw Station [address] Decreased GFR Social History Tobacco Use [...] for your loved ones. For example, children's lunchroom supervisor or elderly care for an older [...] EST Clinical Support Lung Screening Program - [place] [address] [facility] [address] [place] [phone] 08/29/2025 10:00 AM EST Appointment [facility] CT Scan [address] [place] [phone] 01/17/2026 8:15 AM EDT Office Visit Adult Medicine [address] [phone] Minnie Turner MD [address] [place], [place] 05/26/2026 3:30 PM EDT Office Visit Adult [facility] [address] [place], [place] [phone] Yancy Goncalves PA [address] [place], [place] documented as of this encounter Procedures Procedure Name Priority Date/Time Associated Diagnosis Comments BASIC METABOLIC PANEL Routine 07/18/2025 9:45 AM EST Decreased GFR documented in this encounter Results * (ABNORMAL) Basic metabolic panel (07/18/2025 9:45 AM EST) Sodium 142 133 - 145 mmol/L 07/18/2025 1:54 PM [facility] Potassium 4.6 3.5 - 5.5 mmol/L 07/18/2025 1:54 PM [facility] Chloride 106 96 - 110 mmol/L 07/18/2025 1:54 PM [facility] CO2 28 21 - 32 mmol/L 07/18/2025 1:54 PM [facility] Anion Gap 8 3 - 11 07/18/2025 1:54 PM [facility] Glucose 83 70 - 100 mg/dL 07/18/2025 1:54 PM [facility] BUN 13 5 - 25 mg/dL 07/18/2025 1:54 PM [facility] Creatinine 1.30(H) 0.50 - 1.10 mg/dL 07/18/2025 1:54 PM [facility] eGFR 47(L) >=60 mL/min/1. 73m2 07/18/2025 1:54 PM EST [facility] Comment:Calculation based on the Chronic Kidney Disease Epidemiology Collaboration (CKD-EPI) equation refit without adjustment for race. BUN/Creatinine Ratio 10.0 07/18/2025 1:54 PM EST [facility] Calcium 9.1 8.5 - 10.5 mg/dL 07/18/2025 1:54 PM EST [facility] Blood Venous blood specimen / Unknown Venipuncture / Unknown 07/18/2025 9:45 AM EST 07/18/2025 9:45 AM EST us Yancy GARCIA LAB BLOOD ORDERABLES Final Resul t [facility] [address] [place] [address], documented in this encounter Visit Diagnoses Diagnosis Decreased GFR documented in this encounter Additional Health Concerns Assessment Noted Time PHQ-9 Depression Total Score: 1 07/18/20 25 9:03 AM EST documented as of this encounter Care Teams Mail Sorting Supervisor Relationship Specialty Start Date End Date Minnie Turner MD [address] [place] [address] PCP - General Internal Medicine 04/02/04 documented as of this encounter
--- NOTE | ~2025-07-20 | MR_ITS ---
CLINICAL HISTORY: S93.629A - Sprain of tarsometatarsal ligament of unspecified foot, initi... --- Additional Notes or Special Instructions: History of 2nd metatarsal fracture and persistent pain. Evaluate for Exam: Unenhanced MRI of the right foot. Comparison: None. Findings: Osseous structures: There is subchondral bone marrow edema of the interface between the base of the 2nd metatarsal bone and medial and middle cuneiform bones (for example, 8; 22 -18). There is lesser bone marrow edema involving the base of the 4th metatarsal bone (8; 13). Findings are likely reactive related to minimal degenerative disease. No definable fracture lines. No destructive osseous lesions. There is nonspecific bone marrow edema involving the 1st digit medial or tibial sesamoid bone (4; 27 and 7; 9). No other bone marrow edema appreciated. Soft tissues: The Lisfranc ligament between the 2nd metatarsal base and medial cuneiform bone appears intact (8; 19). No clearly definable ligamentous disruption appreciated. There is some minimal edema within the soft tissues interposed between the lateral cuneiform and middle cuneiform as well as medial cuneiform and middle cuneiform bones (7; 17), as well as between the anterior aspect of the lateral cuneiform and cuboid bones (for example, 7; 15 and 4; 11), findings could suggest sequela of ligamentous sprain. No other significant soft tissue swelling. No circumscribed collections. Impression: 1. Likely reactive bone marrow edema of the bases of the 2nd and 4th metatarsal bones as well as medial and middle cuneiform bones, suggesting sequela of or early arthropathy. 2. No definable ligamentous disruption. Specifically, the Lisfranc ligament appears intact. However, there is some mild edema interposed between the medial and middle as well as middle and lateral cuneiform bones, and between the lateral cuneiform bone and cuboid bone, suggesting sequela of ligamentous sprain versus sequela of arthropathy. 2. Nonspecific bone marrow edema involving the 1st digit medial/tibial sesamoid bone. This document has been electronically signed by: Nicholas Padron MD on 07/22/2025 15:43:05
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
--- OUTSIDE RECORDS SUMMARY | 2025-07-20 16:43 | XMS_ITS | Encounter Summary ---
Author Organization [facility] Address [address] [place] [address] Care Team Providers Care Armature And Rotor Winder Name Role Phone Minnie Turner MD Primary Care Provider [phone] Encounter Details Date Type Department Care Team (Late st Contact Info) Description 05/22/2025 Results Follow-Up Adult Medicine [facility] [address] [place], [place] [phone] Minnie Turner MD [address] [place], [place] Social History Tobacco Use Types Packs/Day [...] for your loved ones. For example, child attendant or elderly care for an older [...] EST Clinical Support Lung Screening Program - [place] [address] [facility] [address] [place] [id number] 08/29/2025 10:00 AM EST Appointment [facility] CT Scan [address] [place] [id number] 01/17/2026 8:15 AM EDT Office Visit Adult [address] [phone] Minnie Turner MD [address] [place], [place] 05/26/2026 3:30 PM EDT Office Visit Adult Medicine [facility] [address] [place] [address] Yancy Goncalves PA [address] [place], [place] documented as of this encounter Visit Diagnoses Not on filedocumented in this encounter Additional Health Concerns Assessment Noted Time PHQ-9 Depression Total Score: 0 03/13/20 25 10:00 AM EDT documented as of this encounter Care Teams Armature And Rotor Winder Relationship Specialty Start Date End Date Minnie Turner MD [address] [place] [address] PCP - General Internal Medicine 04/02/04 documented as of this encounter
--- OUTSIDE RECORDS SUMMARY | 2025-07-20 16:43 | XMS_ITS | Clinical Summary ---
Author Organization [address] [facility] Address [address] [place] [address] Phone Care Team Providers Care Pipe Line Gauger Name Role Phone Minnie Turner MD Primary Care Provider [phone] Allergies Active Allergy Reactions Criticality Noted Date Comments Fruit Extracts Hives 09/16/2011 ORANGES Medications clonazePAM (KlonoPIN) 1 mg tablet Take 1 Tab by mouth 2 times daily as needed. 0 Active OLANZapine (ZyPREXA) 20 mg tablet TAKE 1 TABLET BY MOUTH EVERYDAY AT BEDTIME 2 Active venlafaxine XR (EFFEXOR-XR) 75 mg 24 hr capsule Take 1 Capsule by mouth daily. 3 Active mupirocin (BACTROBAN) 2 % ointment APPLY THIN FILM TO AFFECTED AREAS ON CORNERS OF MOUTH 2-3 TIMES DAILY FOR 7 DAYS. 22 g 4 Active famotidine (PEPCID) 20 mg tablet Take 1 tablet (20 mg total) by mouth 2 (two) times a day. 180 tablet 1 5 Active fluticasone (Flonase Sensimist) 27.5 mcg/actuation nasal spray Administer 1 spray into each nostril 1 (one) time each day. 10 g 5 5 Active calcium carbonate (Tums) 500 mg (200 mg elemental calcium) chewable tablet Chew 1 tablet (500 mg total) 4 (four) times a day if needed for indigestion. 120 tablet 5 5 Active loratadine (CLARITIN) 10 mg tablet Take 1 tablet (10 mg total) by mouth 1 (one) time each day. 90 each 1 5 Active albuterol HFA (Ventolin HFA) 90 mcg/actuation inhaler Inhale 2 puffs by mouth every 4 (four) hours if needed for wheezing. 18 g 5 Active albuterol 2.5 mg /3 mL (0.083 %) nebulizer solution Take 3 mL (2.5 mg total) by nebulization every 4 (four) hours if needed for wheezing. 375 mL 4 5 Active nystatin (MYCOSTATIN) cream Apply thin layer to affected area BID 30 g 2 Active Breo Ellipta 200-25 mcg/dose inhaler INHALE ONE PUFF BY MOUTH EVERY DAY (BULK) 60 each 2 5 Active Active Problems Problem Noted Date Diagnosed Date Schizoaffective disorder, unspecified type 05/22 Hypertriglyceridemia 03/13/2025 Closed displaced fracture of second metatarsal bone of right foot 03/13/2025 Overview (03/13/2025): Date of injury 09/17/2024. [facility]. Follows with [facility]. Gastroesophageal reflux disease without esophagi tis [...] Encounters Date Type Department Care Team Description 07/19/2025 Results Follow-Up Adult Medicine [address] [phone] Yancy Goncalves PA 07/18/2025 9:35 AM EST Lab Draw [address] Decreased GFR 07/18/2025 9:00 AM EST Office Visit [address] [phone] Marcela Celis PA Bilateral carpal tunnel syndrome (Primary Dx); Tobacco use disorder; Chronic foot pain, right 07/17/2025 Nurse Triage [address] [phone] Gu[place]upe [place], [place] 05/22/2025 9:00 AM EDT Office Visit [address] [phone] Minnie Turner MD Routine general medical examination at a health care facility (Primary Dx); Hypertriglyceridemia ; Other depression; Gastroesophageal reflux disease without esophagitis; Kidney donor; Moderate persistent asthma, unspecified whether complicated; Schizoaffective disorder, unspecified type ([facility] V24, [facility] V28); Cheilitis 05/22/2025 Results Follow-Up Adult [address] [phone] Minnie Turner MD from Last 3 Months [...] Medical History Relation Name Comments Diabetes Father [place] Throat cancer Maternal Grandfather Diabetes Mother endstage kidney disease with kidney transplant, hypertension Breast cancer Neg Hx Colon cancer Neg Hx Ovarian cancer Neg Hx Relation Name Status Comments Father Maternal Grandfather Mother Social History Tobacco Use Types Packs/Day Years Used Date Smoking Tobacco: Every Day Cigarettes 0.8 38.9 Started: 1985 Smokeless Tobacco: Never Tobacco Cessation:Ready to Q [...] getting things needed for daily living? No 12/11/202 5 Has the lack of transportati on kept [...] care for your loved ones. For example, special needs child caregiver or elderly care for an older adult? [...] on file Sexual Orientation Not on file Last Filed Vital Signs Vital Sign Reading [...] Mass Index 28.89 07/18/2025 8:58 AM EST Plan of Treatment Upcoming Encounters Date Type Department Care Team (Late st Contact Info) Description 08/29/2025 9:30 AM EST Clinical Support Lung Screening Program - [address] [place] [address] 08/29/2025 10:00 AM EST Appointment [facility] CT Scan [address] [place] [address] 01/17/2026 8:15 AM EDT Office Visit Adult Medicine [address] [phone] Minnie Turner MD [address] [place] [address] 05/26/2026 3:30 PM EDT Office Visit Adult [address] [phone] Yancy Goncalves PA [address] [place], [place] Health Maintenance Due Date Last Done Comments Drug Screen 1965 Non-Opioid Controlled Substance Agreement 1966 Hepatitis B Vaccines (1 of 3 - 19+ 3-dose series) 1985 RSV Immunization Adult Patients (1 - Risk 50-74 years 1-dose series) 2016 Zoster Vaccines (1 of 2) 2016 Cervical Cancer Screening: Pap Smear 01/21/2017 01/21/2014 Colorectal Cancer Screening: FIT-DNA (Cologuard) 07/17/2022 Lung Cancer Screening (Low Dose CT) 07/17/2022 Pneumococcal Vaccine: 50+ Years (2 of 2 - PCV) 12/14/2022 12/14/2021 Breast Cancer Screening 01/18/2025 01/18/2023 Influenza Vaccine (#1) 2025 06/22/2012 Medicare Annual Wellness Visit 03/16/2026 Postponed from 07/17 (Not clinically appropriate to address at this time) Social Influencers of Health Screening 07/18/2026 07/18/2025, 03/13/2025 Cholesterol Screening (Lipid Panel) 05/22/2030 05/22/2025, 12/07/2023, 12/07/2023 DTaP,Tdap,and Td Vaccines (3 - Td or Tdap) 12/15/2031 12/14/2021, 02/15/2011 HIV Screening Completed 12/03/2014 Hepatitis C Screening Completed 12/03/2014 Depression Screening Completed 07/18/2025, 12/07/2023 COVID-19 Vaccine Discontinued HIB Vaccines Aged [...] Routine 07/18/2025 9:45 AM EST Decreased GFR COMPREHENSIVE METABOLIC PANEL Routine 05/22/2025 9:37 AM EDT Routine [facility] medical examination at [facility] LIPID PANEL WITH REFLEX TO [...] SCREENING Routine 12/03/2014 HIV SCREENING Routine 12/03/2014 PAP SMEAR Routine 01/21/2014 from Last 3 Months or Most Recently Relevant to Health Maintenance Results * (ABNORMAL) Basic metabolic panel (07/18/2025 9:45 AM EST) Sodium 142 133 - 145 mmol/L 07/18/2025 1:54 PM [facility] Potassium 4.6 3.5 - 5.5 mmol/L 07/18/2025 1:54 PM [facility] Chloride 106 96 - 110 mmol/L 07/18/2025 1:54 PM [facility] CO2 28 21 - 32 mmol/L 07/18/2025 1:54 PM [facility] Anion Gap 8 3 - 11 07/18/2025 1:54 PM [facility] Glucose 83 70 - 100 mg/dL 07/18/2025 1:54 PM [facility] BUN 13 5 - 25 mg/dL 07/18/2025 1:54 PM [facility] Creatinine 1.30(H) 0.50 - 1.10 mg/dL 07/18/2025 1:54 PM [facility] eGFR 47(L) >=60 mL/min/1. 73m2 07/18/2025 1:54 PM [facility] Comment:Calculation based on the Chronic Kidney Disease Epidemiology Collaboration (CKD-EPI) equation refit without adjustment for race. BUN/Creatinine Ratio 10.0 07/18/2025 1:54 PM [facility] Calcium 9.1 8.5 - 10.5 mg/dL 07/18/2025 1:54 PM [facility] Blood Venous blood specimen / Unknown Venipuncture / Unknown 07/18/2025 9:45 AM EST 07/18/2025 9:45 AM EST us Yancy GARCIA LAB BLOOD ORDERABLES Final Resul t [facility] [address] [place] [address], [place] [phone] * (ABNORMAL) Lipid panel with reflex to direct LDL (05/22/2025 9:37 AM EDT) Cholesterol 85 0 - 200 mg/dL LAB CHEMISTRY METHOD 05/22/2025 12:59 PM EDT [facility] Triglycerides 185(H) 0 - 150 mg/dL LAB CHEMISTRY METHOD 05/22/2025 12:59 PM EDT [facility] HDL 30(L) >=40 mg/dL LAB CHEMISTRY METHOD 05/22/2025 12:59 PM EDT [facility] LDL Calculated 18 0 - 100 mg/dL LAB CHEMISTRY METHOD 05/22/2025 12:59 PM EDT [facility] Comment:Estimated LDL Calcul ated using equation: Total cholesterol - HDL cholesterol - (Triglycerides/5) VLDL Cholesterol Leland 37 mg/dL LAB CHEMISTRY METHOD 05/22/2025 12:59 PM EDT [facility] Non HDL Chol. (LDL+VLDL) 55 <145 mg/dL LAB CHEMISTRY METHOD 05/22/2025 12:59 PM EDT [facility] Chol/HDL Ratio 2.8 0.0 - 4.4 LAB CHEMISTRY METHOD 05/22/2025 12:59 PM EDT [facility] Blood Venous blood specimen / Unknown Venipuncture / Unknown 05/22/2025 9:37 AM EDT 05/22/2025 9:37 AM EDT us Minnie Turner MD LAB BLOOD ORDERABLES Final Resul t [facility] [address] [place] [address], [place] [phone] * (ABNORMAL) Comprehensive metabolic panel (05/22/2025 9:37 AM EDT) Sodium 141 133 - 145 mmol/L LAB CHEMISTRY METHOD 05/22/2025 12:59 PM [facility] Potassium 3.9 3.5 - 5.5 mmol/L LAB CHEMISTRY METHOD 05/22/2025 12:59 PM [facility] Chloride 110 96 - 110 mmol/L LAB CHEMISTRY METHOD 05/22/2025 12:59 PM [facility] CO2 23 21 - 32 mmol/L LAB CHEMISTRY METHOD 05/22/2025 12:59 PM [facility] Anion Gap 8 3 - 11 LAB CHEMISTRY METHOD 05/22/2025 12:59 PM [facility] Glucose 81 70 - 100 mg/dL LAB CHEMISTRY METHOD 05/22/2025 12:59 PM [facility] BUN 14 5 - 25 mg/dL LAB CHEMISTRY METHOD 05/22/2025 12:59 PM [facility] Creatinine 1.12(H) 0.50 - 1.10 mg/dL LAB CHEMISTRY METHOD 05/22/2025 12:59 PM [facility] eGFR 57(L) >=60 mL/min/1. 73m2 LAB CHEMISTRY METHOD 05/22/2025 12:59 PM [facility] Comment:Calculation based on the Chronic Kidney Disease Epidemiology Collaboration (CKD-EPI) equation refit without adjustment for race. BUN/Creatinine Ratio 12.5 LAB CHEMISTRY METHOD 05/22/2025 12:59 PM [facility] Calcium 9.2 8.5 - 10.5 mg/dL LAB CHEMISTRY METHOD 05/22/2025 12:59 PM [facility] AST (SGOT) 19 10 - 42 unit/L LAB CHEMISTRY METHOD 05/22/2025 12:59 PM [facility] ALT (SGPT) 21 10 - 60 unit/L LAB CHEMISTRY METHOD 05/22/2025 12:59 PM [facility] Alkaline Phosphatase 138(H) 42 - 121 unit/L LAB CHEMISTRY METHOD 05/22/2025 12:59 PM EDT [facility] Total Protein 7.4 6.0 - 8.0 g/dL LAB CHEMISTRY METHOD 05/22/2025 12:59 PM EDT [facility] Albumin 4.1 3.2 - 5.0 g/dL LAB CHEMISTRY METHOD 05/22/2025 12:59 PM EDT [facility] Total Bilirubin 0.2 0.0 - 1.4 mg/dL LAB CHEMISTRY METHOD 05/22/2025 12:59 PM EDT [facility] Blood Venous blood specimen / Unknown Venipuncture / Unknown 05/22/2025 9:37 AM EDT 05/22/2025 9:37 AM EDT Minnie Turner MD LAB BLOOD ORDERABLES Final Resul t [facility] [address] [place] [address], [place] [phone] * Depression Screening (12/07/2023) Depression Screening Abstracted Ruth Provider HEALTH MAINTENANCE Final Result * SCREENING [...] malignancy. BI-RADS 1 - negative Sara Thomas SELF [employer] IMG XR PROCEDURES Final Resul t * HIV Screening (12/03/2014) HIV Screening Abstracted [facility] Provider HEALTH MAINTENANCE Final Result * Hepatitis C Screening (12/03/2014) Hepatitis C Screening Abstracted [facility] Provider HEALTH MAINTENANCE Final Result * Pap Smear (01/21/2014) Pap smear abstracted ,negative Result [facility] Provider HEALTH MAINTENANCE Final Result from Last 3 Months or Most Recently Relevant to Health Maintenance Insurance Member Subscriber Plan / Payer (Ef fective 2024-Present) Name:ALEXANDRE ANDERSON Relation to Subscriber:Self Name:Alexandre Anderson Payer ID:[id number] Group ID:[id number] Type:Not on file Address: [address] [place] [id number] Care Teams Pipe Line Gauger Relationship Specialty Start Date End Date Minnie Turner MD [address] [place] [address] PCP - General Internal Medicine 04/02/04
--- OUTSIDE RECORDS SUMMARY | 2025-07-20 16:43 | XMS_ITS | Encounter Summary ---
Author Organization [facility] Address [address] [place] [address] Care Team Providers Care Career Center Advisor Name Role Phone Minnie Turner MD Primary Care Provider [phone] Encounter Details Date Type Department Care Team (Late st Contact Info) Description 07/19/2025 Results Follow-Up Adult Medicine [facility] [address] [place], [place] [phone] Yancy Goncalves PA [address] [place], [place] Social History Tobacco Use Types Packs/Day Years Used Date Smoking Tobacco: Every Day Cigarettes 0.8 38.9 Started: 1985 Smokeless Tobacco: Never Comments:Started age 18; max [...] for your loved ones. For example, child protective services social worker or elderly care for an older adult? [...] EST Clinical Support Lung Screening Program - [place] [address] [facility] [address] [place] [address] 08/29/2025 10:[address] [facility] CT Scan [address] [place] [address] 01/17/2026 8:15 AM EDT Office Visit Adult Medicine [address] [phone] Minnie Turner MD [address] [place] [address] 05/26/2026 3:30 PM EDT Office Visit Adult Medicine [address] [phone] Yancy Goncalves PA [address] [place] [address] documented as of this encounter Visit Diagnoses Not on filedocumented in this encounter Additional Health Concerns Assessment Noted Time PHQ-9 Depression Total Score: 1 07/18/20 25 9:03 AM EST documented as of this encounter Care Teams Career Center Advisor Relationship Specialty Start Date End Date Minnie Turner MD [address] [place] [address] PCP - General Internal Medicine 04/02/04 documented as of this encounter
== END 2025-07-20 16:41 | disposition home or self-care (01) ==
LOC: HO.MRI 16:40
PROVIDERS: PCP Internal Medicine; Visit Provider Student in an Organized Health Care Education/Training Program
DX: S93.621A Sprain of tarsometatarsal ligament of right foot, initial encounter (principal)
CPT/HCPCS: 73718

== ENCOUNTER 2025-07-23 14:26 | Outpatient (AMB) | payer OTHER, SELFPAY ==
--- OUTSIDE RECORDS SUMMARY | 2025-07-18 09:00 | XMS_ITS | Encounter Summary ---
Author Organization [facility] Address [address] [place] [address] Care Team Providers Care Installment Agent Name Role Phone Minnie Turner MD Primary Care Provider Reason for Referral * Consultation (Routine) - Authorized Specialty Diagnoses / Procedures Referred By Cait queen Referred To Contact Thoracic Surgery Diagnoses Tobacco use disorder Marcela Celis PA [address] [place] [address] Phone: tel: fax: Lung Screening Program [address] [address] Phone: tel: fax: Referral ID Status Reason Start Date Expiration Date Visits Requested Visits Authorized [id number] Authorized Specialty Services Required 07/18/2026 1 1 Reason for Visit * Reason Comments Numbness Hands and feet Encounter Details Date Type Department Care Team ([facility] Contact Info) Description 07/18/2025 9:00 AM EST Office Visit Adult Medicine [address] [phone] Marcela Celis PA [address] [place], [place] Bilateral carpal tunnel syndrome (Primary Dx); Tobacco use disorder; Chronic foot pain, right Social History Tobacco Use Types Packs/Day Years Used Date Smoking Tobacco: Every Day Cigarettes Smokeless Tobacco: Never Tobacco Cessation:Ready to Q uit: Not Asked; Counseling Given: Not Answered Comments:Started age 18; max 1PPD; 1/2 PPD as of 07/18/25 Alcohol Use Standard Drinks/Week Comments No 0 (1 standard drink = 0.6 oz pur e alcohol) Housing Instability Answer Date Recorde d Are you worried that in the next 2 months you may not have stable housing? No 07/18/2025 Food Access & Nutrition Answer Date Rec orded Do you have access to a vari ety of food including fruits and vegetables? Yes 07/18/2025 Access to Healthcare Answer Date Record ed Within the last 3 months, ho w many times did you visit the emergency department for your medical care? 0 07/18/2025 Health Literacy Answer Date Recorded How often do you need to hav e someone help you when you read instructions, pamphlets, or other written material from your doctor or pharmacy? Never 07/18/2025 Caregiver: How often do you need to have someone help you when you read instructions, pamphlets, or other written material from your doctor or pharmacy? Not on file 07/18/2025 Financial Risk Answer Date Recorded How hard is it for you to pa y for the very basics like food, housing, medical care, and air conditioning / heating? Not very hard 07/18/2025 Transportation Answer Date Recorded Has the lack of transportati on kept you from meetings, work, or from getting things needed for daily living? No Has the lack of transportati on kept you from medical appointments or from getting medications? No 07/18/2025 Social Isolation Answer Date Recorded How often do you feel lonely or isolated from th ose around you? Never 07/18/2025 Food Risk Answer Date Recorded Within the past 12 months we worried whether our food would run out before we got money to buy more. Never true 07/18/2025 Within the past 12 months th e food we bought just didn't last and we didn't have money to get more. Never true 07/18/2025 Dependent Care Answer Date Recorded Do you need help finding or paying for care for your loved ones. For example, child care team lead or elderly care for an older adult? No 07/18/2025 Education Answer Date Recorded Do you think completing more education or training, like finishing a GED, going to college, or learning a trade, would be helpful for you? No 07/18/2025 Employment and Income Answer Date Recor ded During the last four weeks, have you been actively looking for work? No 07/18/2025 Living Situation Answer Date Recorded What is your living situation? Unrecognized valu e 07/18/2025 Comments No Sex and Gender Information Value Date Recorded Sex Assigned at Not on file Legal Sex Female 5:07 AM EST Gender Identity Not on file Sexual Orientation Not on file documented as of this encounter Last Filed Vital Signs Vital Sign Reading Time Taken Comments Blood Pressure 115/66 07/18/2025 8:58 AM EST Pulse 90 07/18/2025 8:58 AM EST Temperature 36.2 C (97.2 F) 07/18/2025 8:58 AM EST Respiratory Rate 16 07/18/2025 8:58 AM EST Oxygen Saturation 97% 07/18/2025 8:58 AM EST Inhaled Oxygen Concentration - - Weight 81.2 kg (179 lb) 07/18/2025 8:58 AM EST Height 167.6 cm (5' 6 ) 07/18/2025 8:58 AM EST Body Mass Index 28.89 07/18/2025 8:58 AM EST documented in this encounter Patient Instructions * Attachments The following attachments cannot be sent through Care Everywhere. * Carpal Tunnel Syndrome ([place]) * Carpal Tunnel Syndrome: Exercises ([place]) documented in this encounter Progress Notes * JOSE Clancy - 07/18/2025 9:00 AM EST CHIEF COMPLAINT: Numbness (Hands and feet) IDENTIFIER: Ankita Anderson is a 60 y.o. old female. HPI: I have obtained verbal consent from Ankita Anderson prior to the recording. I have advised Ankita Anderson that they may refuse the recording and require the recording to be turned off at any time during this encounter. History of Present Illness The patient presents with paresthesia, numbness, and muscle spasms affecting her extremities. She reports intermittent paresthesia, numbness, and muscle spasms in both feet ongoing for multiplemonths, reportedly worsened over past 3-4 days, disrupting her sleep. Similar symptoms are noted inher hands, which are activity-dependent. She reports she has upcoming appointment with a farm service consultant in [place] on 07/23/25 as well as MRI of right foot to evaluate sequelae from a fall sustained one year ago, followed by a podiatry consultation on 07/23/25. The patient has a history of carpal tunnel syndrome diagnosed more than 20 years ago then confirmed by EMG in 2017, which remains untreated. She denies performing nightly wrist splinting, avoidanceof repetitious activity, cool compresses, stretching, or NSAID use (due to solitary kidney s/p donation). Her daily fluid intake is approximately 48 ounces. We reviewed overdue and recommended preventive health measures including: An incomplete Cologuard test, need to schedule mammogram , need to schedule cervical cancer screening, as well as lung cancerscreening. She continues smoking 1/2 PPD, but states she had been smoking 1 PPD in the past. ROS: GENERAL: No fever, shaking chills RESPIRATORY: No shortness of breath CARDIOVASCULAR: No chest pain MUSCULOSKELETAL: As above PAST MEDICAL HISTORY: Patient Active Problem List Diagnosis Date Noted Schizoaffective disorder, unspecified type ([facility] V24, [facility] V28) 05/22/2025 Hypertriglyceridemia 03/13/2025 Closed displaced fracture of second metatarsal bone of right foot 03/13/2025 Gastroesophageal reflux disease without esophagitis 03/09/2022 Globus sensation 03/09/2022 Thyroid nodule 12/30/2021 Asthma 09/27/2018 CTS (carpal tunnel syndrome) 09/07/2016 Hematuria 01/21/2014 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 Surgical History[1] SOCIAL HISTORY: Social History Tobacco Use Smoking status: Every Day Types: Cigarettes Smokeless tobacco: Never Tobacco comments: Started age 18; max 1PPD; 1/2 PPD as of 07/18/25 Substance Use Topics Alcohol use: No FAMILY HISTORY: Family History[2] Family Status Relation Name Status Mother (Not Specified) Father (Not Specified) MGF Neg Hx (Not Specified) No partnership data on file MEDICATIONS DISCONTINUED/REORDERED: There are no discontinued medications. ACTIVE MEDICATIONS: Medications Taking[3] ALLERGIES: Allergies[4] PHYSICAL EXAM: Visit Vitals BP 115/66 Pulse 90 Temp 36.2 ??C (97.2 ??F) (Temporal) Resp 16 Ht 1.676 m (66 ) Wt 81.2 kg (179 lb) SpO2 97% BMI 28.89 kg/m?? OB Status Postmenopausal Smoking Status Every Day BSA 1.91 m?? Wt Readings from Last 5 Encounters: 07/18/25 81.2 kg (179 lb) 05/22/25 81.4 kg (179 lb 8 oz) 03/13/25 80.5 kg (177 lb 6.4 oz) 09/13/24 80.2 kg (176 lb 12.8 oz) 09/12/24 79.4 kg (175 lb) BMI plan is deferred until next visit Physical Exam APPEARANCE: Alert and in no acute distress HEART: RRR with normal S1 and S2, no murmurs, no gallops LUNG: CTA bilaterally, no wheezing, rales, or rhonchi. EXTREMITIES: Moving bilateral upper/lower extremities independently; no obvious upper/lower extremity deformity; bilateral upper/lower extremities warm and well perfused without edema LABS: Orders Placed This Encounter Procedures Ambulatory referral to Lung Screening Program IMAGING: None IMPRESSION: 1. Bilateral carpal tunnel syndrome 2. Tobacco use disorder 3. Chronic foot pain, right Assessment & Plan Bilateral foot tingling and numbness: Patient encouraged to complete right foot MRI reportedly scheduled for tomorrow with podiatry follow-up pending on 07/23/25. Recommended to increase water intake to 80-100 ounces per day and have BMP completed as previously ordered. Carpal tunnel syndrome: Encouraged smoking cessation; advised bilateral wrist splinting at night, avoid repetitive activities, perform stretches, apply cold compresses. She avoids NSAIDs due to solitary kidney. Health maintenance: The patient is advised to complete the Cologuard test, schedule a mammogram, and visit an HARP REPAIRER for cervical cancer screening, as her last visit was over two years ago. A lung cancer screening orderwill be placed again, and the patient is advised to schedule the screening. Follow back with PCP in6 months. Medication and lab orders: Orders Placed This Encounter Procedures Ambulatory referral to Lung Screening Program Other orders: [facility]B [facility] JOSE Clancy on 07/18/2025 at 9:31 AM EST G2211 is applicable to this visit as the primary care provider (PCP) office dealing with list the conditions noted/billed above are complex requiring extensive management/work up associated with longitudinal care of this patient. This patient???s serious/complex conditions may also require several consultants needing management/coordination through PCP office. This chart was generated by the [employer] EMR system and [employer] speech recognition software and may contain inherent errors or omissions not intended by the user. Grammatical errors, random word insertions, deletions, pronoun errors and incomplete sentences are occasional consequences of this technologydue to software limitations. Not all errors are caught or corrected. If there are questions or concerns about the content of this note or information contained within the body of this dictation they should be addressed directly with the author for clarification. [1] Past Surgical History: Procedure Laterality Date CHOLECYSTECTOMY NEPHRECTOMY right; donation [2] Family History Problem Relation Name Age of Onset Diabetes Mother endstage kidney disease with kidney transplant, hypertension Diabetes Father [place] Throat cancer Maternal Grandfather Breast cancer Neg Hx Colon cancer Neg Hx Ovarian cancer Neg Hx [3] Outpatient Medications Marked as Taking for the 07/18/25 encounter (Office Visit) with JOSE Clancy Medication Sig Dispense Refill albuterol 2.5 mg /3 mL (0.083 %) nebulizer solution Take 3 mL (2.5 mg total) by nebulization every 4 (four) hours if needed for wheezing. 375 mL 4 albuterol HFA (Ventolin HFA) 90 mcg/actuation inhaler Inhale 2 puffs by mouth every 4 (four) hours if needed for wheezing. 18 g 0 Breo Ellipta 200-25 mcg/dose inhaler INHALE ONE PUFF BY MOUTH EVERY DAY (BULK) 60 each 2 calcium carbonate (Tums) 500 mg (200 mg elemental calcium) chewable tablet Chew 1 tablet (500 mg total) 4 (four) times a day if needed for indigestion. 120 tablet 5 clonazePAM (KlonoPIN) 1 mg tablet Take 1 Tab by mouth 2 times daily as needed. famotidine (PEPCID) 20 mg tablet Take 1 tablet (20 mg total) by mouth 2 (two) times a day. 180 tablet 1 fluticasone (Flonase Sensimist) 27.5 mcg/actuation nasal spray Administer 1 spray into each nostril1 (one) time each day. 10 g 5 loratadine (CLARITIN) 10 mg tablet Take 1 tablet (10 mg total) by mouth 1 (one) time each day. 90 each 1 mupirocin (BACTROBAN) 2 % ointment APPLY THIN FILM TO AFFECTED AREAS ON CORNERS OF MOUTH 2-3 TIMES DAILY FOR 7 DAYS. 22 g 0 nystatin (MYCOSTATIN) cream Apply thin layer to affected area BID 30 g 2 OLANZapine (ZyPREXA) 20 mg tablet TAKE 1 TABLET BY MOUTH EVERYDAY AT BEDTIME venlafaxine XR (EFFEXOR-XR) 75 mg 24 hr capsule Take 1 Capsule by mouth daily. [4] Allergies Allergen Reactions Fruit Extracts Hives ORANGES documented in this encounter Plan of Treatment Upcoming Encounters Date Type Department Care Team (Late st Contact Info) Description 08/29/2025 9:30 AM EST Clinical Support Lung Screening Program - [address] [place] [address] 08/29/2025 10:00 AM EST Appointment [facility] CT Scan [address] [place] [address] 01/17/2026 8:15 AM EDT Office Visit Adult Medicine [address] [phone] Minnie Turner MD [address] [place] [address] 05/26/2026 3:30 PM EDT Office Visit Adult Medicine [address] [phone] Yancy Goncalves PA [address] [place], [place] Scheduled Referrals Name Type Priority Associated Diagnoses Order Schedule Ambulatory referral to Lung Screening Program Outpatient Referral Routine Tobacco use disorder 1 Occurrences starting 07/18/2025 until 07/18/2026 documented as of this encounter Visit Diagnoses Diagnosis Bilateral carpal tunnel syndrome- Primary Carpal tunnel syndrome Tobacco use disorder Chronic foot pain, right documented in this encounter Additional Health Concerns Assessment Noted Time PHQ-9 Depression Total Score: 1 07/18/20 25 9:03 AM EST documented as of this encounter Care Teams Installment Agent Relationship Specialty Start Date End Date Minnie Turner MD [address] [place] [address] PCP - General Internal Medicine 04/02/04 documented as of this encounter
--- OUTSIDE RECORDS SUMMARY | 2025-07-18 09:35 | XMS_ITS | Encounter Summary ---
Author Organization [facility] [address] [place] [address] Care Team Providers Care Supervisor Mold Shop Name Role Phone Minnie Turner MD Primary Care Provider [phone] Encounter Details Date Type Department Care Team (Late st Contact Info) Description 07/18/2025 9:35 AM EST Lab Draw Station [address] Decreased GFR Social History Tobacco Use Types Packs/Day Years Used Date Smoking Tobacco: Every Day Cigarettes Smokeless Tobacco: Never Comments:Started age 18; max 1PPD; 1/2 PPD [...] care for your loved ones. For example, childcare attendant or elderly care for an older adult? [...] EST Clinical Support Lung Screening Program - [place] [address] [facility] [address] [place] [phone] 08/29/2025 10:00 AM EST Appointment [facility] CT Scan [address] [place] [phone] 01/17/2026 8:15 AM EDT Office Visit Adult Medicine [address] [address] Minnie Turner MD [address] [place], [place] 05/26/2026 3:30 PM EDT Office Visit Adult [facility] [address] [place], [place] [phone] Yancy Goncalves PA [address] [place], [place] documented as of this encounter Procedures Procedure Name Priority Date/Time Associated Diagnosis Comments BASIC METABOLIC PANEL Routine 07/18/2025 9:45 AM EST Decreased GFR documented in this encounter Results * (ABNORMAL) Basic metabolic panel (07/18/2025 9:45 AM EST) Sodium 142 133 - 145 mmol/L 07/18/2025 1:54 PM [facility] Potassium 4.6 3.5 - 5.5 mmol/L 07/18/2025 1:54 PM [facility] Chloride 106 96 - 110 mmol/L 07/18/2025 1:54 PM [facility] CO2 28 21 - 32 mmol/L 07/18/2025 1:54 PM [facility] Anion Gap 8 3 - 11 07/18/2025 1:54 PM [facility] Glucose 83 70 - 100 mg/dL 07/18/2025 1:54 PM [facility] BUN 13 5 - 25 mg/dL 07/18/2025 1:54 PM [facility] Creatinine 1.30(H) 0.50 - 1.10 mg/dL 07/18/2025 1:54 PM [facility] eGFR 47(L) >=60 mL/min/1. 73m2 07/18/2025 1:54 PM EST [facility] Comment:Calculation based on the Chronic Kidney Disease Epidemiology Collaboration (CKD-EPI) equation refit without adjustment for race. BUN/Creatinine Ratio 10.0 07/18/2025 1:54 PM EST [facility] Calcium 9.1 8.5 - 10.5 mg/dL 07/18/2025 1:54 PM EST [facility] Blood Venous blood specimen / Unknown Venipuncture / Unknown 07/18/2025 9:45 AM EST 07/18/2025 9:45 AM EST us Yancy GARCIA LAB BLOOD ORDERABLES Final Resul t [facility] [address] [place] [address], documented in this encounter Visit Diagnoses Diagnosis Decreased GFR documented in this encounter Additional Health Concerns Assessment Noted Time PHQ-9 Depression Total Score: 1 07/18/20 25 9:03 AM EST documented as of this encounter Care Teams Supervisor Mold Shop Relationship Specialty Start Date End Date Minnie Turner MD [address] [place] [address] PCP - General Internal Medicine 04/02/04 documented as of this encounter
--- NOTE | 2025-07-23 14:32 | A.OFFVIS_ITS ---
Vital Signs 07/23/25 14:33 Height 5 ft 6 in Weight 170 lb BMI 27.4 Intake Visit Reasons: pain and swelling of right foot Intake Note: Ankita is a 60 year old female who presents today for a follow up on her right foot x-ray and MRI results. Spoke with patient and reminded her to obtain her X- rays prior to her next visit and MRI is scheduled for 07/20/25. Patient reports she is doing well however she is still experiencing pain on the dorsum aspect of her right foot. She was seen at [facility] due to experiencing bilateral cramping, tingling and numbness in her feet. Allergies orange Allergy (Verified 07/23/25 14:34) Unknown HPI HPI pain and swelling of right foot: Details: The patient is a 60-year-old female returns for MRI review of right foot pain. She also states she is getting worked up for peripheral neuropathy with her primary care physician and recently underwent testing. She still endorses pain to her right foot, worse when ambulating, no resolution for symptoms so far. History: In September, the patient experienced a fall resulting in a right foot metatarsal fracture. [facility] Patient notes she still has persistent pain and swelling. The pain is exacerbated by activity and is described as being more pronounced at the end of the day. The patient also notes pain to her right 5th toe. She states the pain was not present initially after injury however she started noticing the pain more so recently. She notes the pain both when walking and when resting. The patient also experiences issues with an ingrown toenail, which causes significant pain, particularly when it grows into the skin. Previous attempts to remove the entire nail were unsuccessful, and regular trimming of the nail corners was suggested as a management strategy. [facility] Social History Patient Tobacco Use Status: Current everyday Tobacco user Current occupational status: unemployed Review of Systems Const All systems reviewed & are unremarkable except as noted in HPI and below Physical Exam Vital Signs: BMI result Body Mass Index 27.4 Extrem Other: *Bilateral Lower Extremity Focused Exam Vascular: DP/PT 2/4, CFT less than 3 seconds all digits, temperature gradient warm to cool. Mild edema to the dorsal aspect of the right 2nd and 3rd TMT region. Derm: Right hallux nail incurvated medial and lateral border ingrown. Left hallux nail medial border ingrown. Right hallux nail subungual debris and th ickening discoloration. Neuro: Protective sensation grossly intact to bilateral lower extremities. MSK: Moderate tenderness on palpation of the dorsal aspect of the 2nd and 3rd TMT joint. Positive forefoot adduction test. Positive piano buckner test of the 3rd metatarsal, negative to the 2nd. Today, no tenderness on palpation of the medial and lateral border bilateral hallux. Office Procedures AMB Joint Injection/Aspir Pod Joint Injection/Aspiration Podiatry: Procedure: Steroid injection Location: Right 2nd and 3rd tarsometatarsal joint Medication: 1.5cc 0.5% bupivicaine, 1cc dexamethasone, 0.5cc kenalog? Description: The right foot was prepped using alcohol. A steroid injection was administered using sterile technique. The site was dressed using a band-aid. Post-procedure Instructions: The patient was instructed to apply ice to the injection site. The patient was advised to call the office if there are signs or symptoms of worsening pain, infection, or steroid flare. RT - Injection of small joint RT Procedure code (CPT) selection complete Office Meds triamcinolone acetonide 40 mg/mL suspension for injection Performing Provider: Arnol Ca DPM Performing Location: [facility] [place] [facility] Administered by: Arnol Ca DPM on 07/23/25 15:26 Dose Route Admin Location Dispensed Lot Number Expiration Date [facility] [employer] Marketing Specialist 20 mg intra-articular 1 mL [id number] AMN [employer] Total Dispensed Waste 1 mL 50 % dexamethasone sodium phosphate 4 mg/mL injection solution Performing Provider: Arnol Ca DPM Performing Location: [facility] – [place] [facility] Administered by: Arnol Ca DPM on 07/23/25 15:26 Dose Route Admin Location Dispensed Lot Number Expiration Date [facility] [employer] Specialist 4 mg intra-articular 1 mL [id number] MYL AN INSTITUTI Total Dispensed Waste 1 mL 0 % bupivacaine (PF) 0.5 % (5 mg/mL) injection solution Performing Provider: Arnol aC DPM Performing Location: [facility] – [place] [facility] Administered by: Arnol Ca DPM on 07/23/25 15:26 Dose Route Admin Location Dispensed Lot Number Expiration Date [facility] Media Marketing Specialist 2 mL intra-articular 10 mL [id number] CARLOS A OLIVEROS Total Dispensed Waste 10 mL 80 % Results Reviewed Results Reviewed: Podiatry X-ray Read: 12/26/2024 X-ray right foot 3 views (AP, MO, Lateral) reviewed which shows comminuted fracture of the base of the 2nd metatarsal, possible diastasis (2mm) of the 1st and 2nd metatarsal. I personally reviewed the imaging and my findings are listed above. MRI right foot 07/22/2025: Impression: 1. Likely reactive bone marrow edema of the bases of the 2nd and 4th metatarsal bones as well as medial and middle cuneiform bones, suggesting sequela of or early arthropathy. 2. No definable ligamentous disruption. Specifically, the Lisfranc ligament appears intact. However, there is some mild edema interposed between the medial and middle as well as middle and lateral cuneiform bones, and between the lateral cuneiform bone and cuboid bone, suggesting sequela of ligamentous sprain versus sequela of arthropathy. 2. Nonspecific bone marrow edema involving the 1st digit medial/tibial sesamoid bone. Assessment & Plan Assessment & Plan (1) Osteoarthritis of right foot: Code(s): M19.071 - Primary osteoarthritis, right ankle and foot Category: Medical Qualifiers: Osteoarthritis type: post-traumatic Qualified Code(s): M19.171 - Post- traumatic osteoarthritis, right ankle and foot Plan: * Reviewed right foot MRI with the patient * Discussed that her symptoms are most likely due to osteoarthritis developing in her 2nd and 3rd TMT joints secondary to her previous fracture. * Discussed treatment options which include use of a carbon fiber insole, steroid injections, and definitive treatment via 2/3 tarsometatarsal joint arthrodesis. * Patient states she is not interested in surgery at this time. * Administered steroid injection to the right 2nd and 3rd TMT region * F/u in 1 month (2) Metatarsal fracture: Code(s): S92.309A - Fracture of unspecified metatarsal bone(s), unspecified foot, initial encounter for closed fracture Category: Medical Qualifiers: Encounter type: initial encounter Fracture alignment: displaced Fracture type: closed Laterality: right Metatarsal bone: second Qualified Code(s): S92.321A - Displaced fracture of second metatarsal bone, right foot, initial encounter for closed fracture Plan: * Metatarsal fractures appear healed on MRI (3) Lisfranc's sprain: Code(s): S93.629A - Sprain of tarsometatarsal ligament of unspecified foot, initial encounter Category: Medical Qualifiers: Encounter type: sequela Laterality: right Qualified Code(s): S93.621S - Sprain of tarsometatarsal ligament of right foot, sequela Plan: * Lisfranc ligament intact on MRI (4) Paronychia of great toe of right foot: Code(s): L03.031 - Cellulitis of right toe Category: Medical Plan: * Continue Ciclopirox for fungal infection to the nail (5) Paronychia of great toe, left: Code(s): L03.032 - Cellulitis of left toe Category: Medical Plan: * Monitoring left hallux medial border ingrown nail (6) Hammertoe of right foot: Code(s): M20.41 - Other hammer toe(s) (acquired), right foot Category: Medical Plan: * Recommended 5th digit spacer Orders: Orders AMB Joint Injection/Aspiration Podiatry Today M19.171 - Post-traumatic osteoarthritis, right ankle and foot Coding Level of Care Code Est Pt Level 4 (33217) Diagnoses Post-traumatic osteoarthritis of right foot M19.171 Osteoarthritis type: post-traumatic Closed displaced fracture of second metatarsal bone of right foot, initial encounter S92.321A Encounter type: initial encounter Fracture alignment: displaced Fracture type: closed Laterality: right Metatarsal bone: second Sprain of ligament of tarsometatarsal joint of right foot, sequela S93.621S Encounter type: sequela Laterality: right Paronychia of great toe of right foot L03.031 Paronychia of great toe, left L03.032 Hammertoe of right foot M20.41 CPT Codes Joint injectio/aspiration Podiatry - Joint Injection POD2: RT - Injection of small joint RT ([id number])
[2025-07-23 14:33] VITALS: BMI 27.4
--- OUTSIDE RECORDS SUMMARY | 2025-07-23 18:42 | XMS_ITS | Encounter Summary ---
Author Organization [facility] Address [address] [place] [address] Care Team Providers Care Hatchery Laborer Name Role Phone Minnie Turner MD Primary Care Provider [phone] Encounter Details Date Type Department Care Team (Late st Contact Info) Description 05/22/2025 Results Follow-Up Adult Medicine [facility] [address] [place], [place] [phone] Minnie Turner MD [address] [place], [place] Social History Tobacco Use Types Packs/Day Years Used Date Smoking Tobacco: Every Day Cigarettes 1 40 Started: 08/08/1985 Smokeless Tobacco: Never Comments:Currently 1/2 [...] your loved ones. For example, child care counselor or elderly care for an older adult? [...] EST Clinical Support Lung Screening Program - [place] [address] [facility] [address] [place] [phone] 08/29/2025 10:00 AM EST Appointment [facility] CT Scan [address] [place] [phone] 01/17/2026 8:15 AM EDT Office Visit Adult Medicine [facility] [address] [place] [address] Minnie Turner MD [address] [place] [address] 05/26/2026 3:30 PM EDT Office Visit Adult Medicine [address] [phone] Yancy Goncalves PA [address] [place] [address] documented as of this encounter Visit Diagnoses Not on filedocumented in this encounter Additional Health Concerns Assessment Noted Time PHQ-9 Depression Total Score: 0 03/13/20 25 10:00 AM EDT documented as of this encounter Care Teams Hatchery Laborer Relationship Specialty Start Date End Date Minnie Turner MD [address] [place] [address] PCP - General Internal Medicine 04/02/04 documented as of this encounter
--- OUTSIDE RECORDS SUMMARY | 2025-07-23 18:42 | XMS_ITS | Encounter Summary ---
Author Organization [facility] Address [address] [place] [address] Care Team Providers Care Rn Eligibility Name Role Phone Minnie Turner MD Primary Care Provider [phone] Encounter Details Date Type Department Care Team (Late st Contact Info) Description 07/19/2025 Results Follow-Up Adult Medicine [facility] [address] [place], [place] [phone] Yancy Goncalves PA [address] [place], [place] Social History Tobacco Use Types Packs/Day Years Used Date Smoking Tobacco: Every Day Cigarettes 0.8 39 Started: 1985 Smokeless Tobacco: Never Comments:Started age [...] for your loved ones. For example, children's literature professor or elderly care for an older adult? [...] EST Clinical Support Lung Screening Program - [place] [address] [facility] [address] [place] [phone] 08/29/2025 10:00 AM EST Appointment [facility] CT Scan [address] [place] [address] 01/17/2026 8:15 AM EDT Office Visit Adult Medicine [address] [phone] Minnie Turner MD [address] [place] [address] 05/26/2026 3:30 PM EDT Office Visit Adult Medicine [address] [phone] Yancy Goncalvse PA [address] [place] [address] documented as of this encounter Visit Diagnoses Not on filedocumented in this encounter Additional Health Concerns Assessment Noted Time PHQ-9 Depression Total Score: 1 07/18/20 25 9:03 AM EST documented as of this encounter Care Teams Rn Eligibility Relationship Specialty Start Date End Date Minnie Turner MD [address] [place] [address] PCP - General Internal Medicine 04/02/04 documented as of this encounter
--- OUTSIDE RECORDS SUMMARY | 2025-07-23 18:42 | XMS_ITS ---
Author Name [facility] Organization Unknown Care Team Organization Name Specialty Phone Email Start Date End Da te [facility] Minnie Turner Primary Care 06/15/2022 4
--- OUTSIDE RECORDS SUMMARY | 2025-07-23 18:42 | XMS_ITS | Encounter Summary ---
Author Organization [facility] Address [address] [place] [address] Care Team Providers Care General Utility Maintenance Repairer Name Role Phone Minnie Turner MD Primary Care Provider [phone] Reason for Visit * Reason Onset Date Comments Results 07/22/2025 Encounter Details Date Type Department Care Team ([facility] st Contact Info) Description 07/22/2025 Telephone Adult Medicine [facility] [address] [place], [place] [phone] Marcela Celis PA [address] [place], [place] Social History Tobacco Use Types Packs/Day [...] care for your loved ones. For example, home child care provider or elderly care for an older adult? [...] as of this encounter Progress Notes * Unique Álvarez - 07/22/2025 11:13 AM EST Patient states she had seen Marcela Celis MA on 07/18 for intermittent paresthesia, numbness, andmuscle spasms in both feet. States she had some blood work done and a MRI of her right foot on 07/20. She is wondering how the labs came out and if what is going to be done to help her symptoms? documented in this encounter Plan of Treatment Upcoming Encounters Date Type Department Care Team (Late st Contact Info) Description 08/29/2025 9:30 AM EST Clinical Support Lung Screening Program - [place] [address] [facility] [address] [place] [phone] 08/29/2025 10:00 AM EST Appointment [facility] CT Scan [address] [place] [address] 01/17/2026 8:15 AM EDT Office Visit Adult Medicine [address] [phone] Minnie Turner MD [address] [place] [address] 05/26/2026 3:30 PM EDT Office Visit Adult Medicine [address] [phone] Yancy Goncalves PA [address] [place] [address] documented as of this encounter Visit Diagnoses Not on filedocumented in this encounter Additional Health Concerns Assessment Noted Time PHQ-9 Depression Total Score: 1 07/18/20 25 9:03 AM EST documented as of this encounter Care Teams General Utility Maintenance Repairer Relationship Specialty Start Date End Date Minnie Turner MD [address] [place] [address] PCP - General Internal Medicine 04/02/04 documented as of this encounter
--- OUTSIDE RECORDS SUMMARY | 2025-07-23 18:42 | XMS_ITS | Clinical Summary ---
Author Organization [address] [facility] Address [address] [place] [address] Phone Care Team Providers Care Biometric Technician Name Role Phone Minnie Turner MD Primary Care Provider Allergies Active Allergy Reactions Criticality Noted Date [...] 03/13/2025 Overview (03/13/2025): Date of injury 09/17/2024. [facility]. Follows with [facility]. Gastroesophageal reflux [...] Encounters Date Type Department Care Team Description 07/22/2025 Telephone Adult [address] [phone] Marcela Celis PA 07/19/2025 Results Follow-Up [address] [phone] Yancy Goncalves PA 07/18/2025 9:35 AM EST Lab Draw [address] Decreased GFR 07/18/2025 9:00 AM EST Office Visit [address] [phone] Marcela Celis PA Bilateral carpal tunnel syndrome (Primary Dx); Tobacco use disorder; Chronic foot pain, right 07/17/2025 Nurse Triage [address] [phone] Guadalupe Potts [place] 05/22/2025 9:00 AM EDT Office Visit [address] [phone] Minnie Turner MD Routine general medical examination at a health care facility (Primary Dx); Hypertriglyceridemia ; Other depression; Gastroesophageal reflux disease without esophagitis; Kidney donor; Moderate persistent asthma, unspecified whether complicated; Schizoaffective disorder, unspecified type ([facility] V24, [facility] V28); Cheilitis 05/22/2025 Results Follow-Up [address] [phone] Minnie Turner MD from Last 3 Months [...] Medical History Relation Name Comments Diabetes Father RI Throat cancer Maternal Grandfather Diabetes Mother endstage kidney disease with kidney transplant, hypertension Breast cancer Neg Hx Colon cancer Neg Hx Ovarian cancer Neg Hx Relation Name Status Comments Father Maternal Grandfather Mother Social History Tobacco Use Types Packs/Day Years Used Date Smoking Tobacco: Every Day Cigarettes 0.8 39 Started: 1986 Smokeless Tobacco: Never Tobacco Cessation:Ready [...] Record ed Within the last 3 months, gus laguerre many times did you visit the emergency [...] for your loved ones. For example, child nutrition assistant or elderly care for an older adult? [...] EST Clinical Support Lung Screening Program - [place] [address] [facility] [address] [place] [phone] 08/29/2025 10:00 AM EST Appointment [facility] CT Scan [address] [place] [phone] 01/17/2026 8:15 AM EDT Office Visit Adult Medicine [facility] [address] [place] [address] Minnie Turner MD [address] [place], [place] 05/26/2026 3:30 PM EDT Office Visit Adult Medicine [facility] [address] [place] [phone] Yancy Goncalves PA [address] [place] [address] Health Maintenance Due Date Last Done Comments [...] 133 - 145 mmol/L 07/18/2025 1:54 PM [facility] Potassium 4.6 3.5 - 5.5 mmol/L 07/18/2025 1:54 PM [facility] Chloride 106 96 - 110 mmol/L 07/18/2025 1:54 PM [facility] CO2 28 21 - 32 mmol/L 07/18/2025 1:54 PM [facility] Anion Gap 8 3 - 11 07/18/2025 1:54 PM [facility] Glucose 83 70 - 100 mg/dL 07/18/2025 1:54 PM [facility] BUN 13 5 - 25 mg/dL 07/18/2025 1:54 PM [facility] Creatinine 1.30(H) 0.50 - 1.10 mg/dL 07/18/2025 1:54 PM [facility] eGFR 47(L) >=60 mL/min/1. 73m2 07/18/2025 1:54 PM [facility] Comment:Calculation based on the Chronic Kidney Disease Epidemiology Collaboration (CKD-EPI) equation refit without adjustment for race. BUN/Creatinine Ratio 10.0 07/18/2025 1:54 PM [facility] Calcium 9.1 8.5 - 10.5 mg/dL 07/18/2025 1:54 PM [facility] Blood Venous blood specimen / Unknown Venipuncture / Unknown 07/18/2025 9:45 AM EST 07/18/2025 9:45 AM EST us Yancy GARCIA LAB BLOOD ORDERABLES Final Resul t [facility] [address] [place] [address], [place] [phone] * (ABNORMAL) Lipid panel with reflex to direct LDL (05/22/2025 9:37 AM EDT) Cholesterol 85 0 - 200 mg/dL LAB CHEMISTRY METHOD 05/22/2025 12:59 PM EDT [facility] Triglycerides 185(H) 0 - 150 mg/dL LAB CHEMISTRY METHOD 05/22/2025 12:59 PM EDT [facility] HDL 30(L) >=40 mg/dL LAB CHEMISTRY METHOD 05/22/2025 12:59 PM EDT [facility] LDL Calculated 18 0 - 100 mg/dL LAB CHEMISTRY METHOD 05/22/2025 12:59 PM EDT [facility] Comment:Estimated LDL Calcul ated using equation: Total cholesterol - HDL cholesterol - (Triglycerides/5) VLDL Cholesterol Leland 37 mg/dL LAB CHEMISTRY METHOD 05/22/2025 12:59 PM EDT [facility] Non HDL Chol. (LDL+VLDL) 55 <145 mg/dL LAB CHEMISTRY METHOD 05/22/2025 12:59 PM EDT [facility] Chol/HDL Ratio 2.8 0.0 - 4.4 LAB CHEMISTRY METHOD 05/22/2025 12:59 PM EDT [facility] Blood Venous blood specimen / Unknown Venipuncture / Unknown 05/22/2025 9:37 AM EDT 05/22/2025 9:37 AM EDT us Minnie Turner MD LAB BLOOD ORDERABLES Final Resul t [facility] [address] [place] [address], [place] [phone] * (ABNORMAL) Comprehensive metabolic panel (05/22/2025 9:37 AM EDT) [facility] Signature Sodium 141 133 - 145 mmol/L LAB [...] LAB CHEMISTRY METHOD 05/22/2025 12:59 PM EDT [facility] Alkaline Phosphatase 138(H) 42 - 121 unit/L LAB CHEMISTRY METHOD 05/22/2025 12:59 PM EDT [facility] Total Protein 7.4 6.0 - 8.0 g/dL LAB CHEMISTRY METHOD 05/22/2025 12:59 PM EDT [facility] Albumin 4.1 3.2 - 5.0 g/dL LAB CHEMISTRY METHOD 05/22/2025 12:59 PM EDT [facility] Total Bilirubin 0.2 0.0 - 1.4 mg/dL LAB CHEMISTRY METHOD 05/22/2025 12:59 PM EDT [facility] Blood Venous blood specimen / Unknown Venipuncture / Unknown 05/22/2025 9:37 AM EDT 05/22/2025 9:37 AM EDT us Minnie Turner MD LAB BLOOD ORDERABLES Final Resul t [facility] [address] [place] [address], * Depression Screening (12/07/2023) Depression Screening Abstracted us Historical Provider HEALTH [...] evidence of malignancy. BI-RADS 1 - negative Result [facility] Sara Thomas PLACEMENT OFFICER IMG XR PROCEDURES Final Resul t * HIV Screening (12/03/2014) HIV Screening Abstracted Result [facility] Historical Provider HEALTH MAINTENANCE Final Result * Hepatitis C Screening (12/03/2014) Hepatitis C Screening Abstracted [facility] Provider HEALTH MAINTENANCE Final Result * Pap Smear (01/21/2014) Pap smear abstracted ,negative Result [facility] Historical Provider HEALTH MAINTENANCE Final Result from Last 3 Months or Most Recently Relevant to Health Maintenance Insurance Member Subscriber Plan / Payer (Ef fective 2024-Present) Name:ALEXANDRE ANDERSON Relation to Subscriber:Self Name:Alexandre Anderson Payer ID:[id number] Group ID:[id number] Type:Not on file Address: [facility] [address] [id number] Care Teams Biometric Technician Relationship Specialty Start Date End Date Minnie Turner MD [address] [place] [address] PCP - General Internal Medicine 04/02/04
== END 2025-07-23 14:58 | disposition home or self-care (01) ==
LOC: HO.HPODS 14:27
PROVIDERS: PCP Internal Medicine; Visit Provider Student in an Organized Health Care Education/Training Program
DX: M19.171 Post-traumatic osteoarthritis, right ankle and foot (principal); S92.321A Displaced fracture of second metatarsal bone, right foot, initial encounter for closed fracture; S93.62 Sprain of tarsometatarsal ligament of foot; L03.031 Cellulitis of right toe; L03.032 Cellulitis of left toe; M20.41 Other hammer toe(s) (acquired), right foot
CPT/HCPCS: 20600; 99214

== ENCOUNTER → 2025-07-23 14:26 | Outpatient (BNVA) | payer OTHER, SELFPAY | PROVIDERS: PCP Internal Medicine; Visit Provider Student in an Organized Health Care Education/Training Program | DX: S92.321A Displaced fracture of second metatarsal bone, right foot, initial encounter for closed fracture (principal); M19.171 Post-traumatic osteoarthritis, right ankle and foot; S93.62 Sprain of tarsometatarsal ligament of foot; L03.031 Cellulitis of right toe; L03.032 Cellulitis of left toe; M20.41 Other hammer toe(s) (acquired), right foot | CPT/HCPCS: 20600; 99212; J0665; J1100; J3301 ==